=== PATIENT | female | born 1970 | race Two or more races ===

== ENCOUNTER 2020-04-03 12:29 | Outpatient (REF) | payer OTHER, SELFPAY ==
--- NOTE | 2020-04-03 12:38 | XR_ITS ---
EXAMINATION: XR FOOT, LEFT CLINICAL INFORMATION: Twisted ankle with pain lateral aspect right foot and ankle COMPARISON: Report of November 21, 2007 TECHNIQUE: AP, lateral, and oblique views of the left foot. FINDINGS: There is no evidence of acute fracture or dislocation of the left foot. No significant soft tissue swelling is appreciated. No radiopaque foreign body. XR/XR foot LT min 3V IMPRESSION: No acute fracture or dislocation of the left foot identified.
== END 2020-04-03 12:30 | disposition home or self-care (01) ==
LOC: HO.XRAY 12:29
PROVIDERS: Absent Provider Internal Medicine; PCP Internal Medicine; Visit Provider Nurse Practitioner Family
DX: M25.571 Pain in right ankle and joints of right foot (principal)
CPT/HCPCS: 73630

== ENCOUNTER 2020-05-30 13:33 | Outpatient (REF) | payer OTHER, SELFPAY ==
[2020-05-30 15:23] LABS: MANUAL DIFF FLAG NO
[2020-05-30 15:39] LABS: Basophils Absolute Auto 0.1 X10*3/uL (0.0-0.2); Basophils Percent Auto 0.7 % (0-2); Eosinophils Absolute Auto 0.2 X10*3/uL (0.0-0.4); Eosinophils Percent Auto 2.9 % (0-4); Hematocrit 38.6 % (37-47); Hemoglobin 12.5 g/dl (12.0-16.0); Imm Gran Abs Auto 0.01 X10*3/uL (0.00-0.03); Imm Gran Pct Auto 0.1 % (0.0-0.4); Lymphocytes Absolute Auto 2.6 X10*3/uL (1.2-4.9); Lymphocytes Percent Auto 33.7 % (20-40); Mean Corpuscular HGB Conc 32.4 g/dl (31.0-35.0); Mean Corpuscular Hemoglobin 28.3 pg (27.0-33.0); Mean Corpuscular Volume 87.5 fL (80-98); Mean Platelet Volume 10.8 fL (9.4-12.3); Monocytes Absolute Auto 0.5 X10*3/uL (0.1-1.2); Monocytes Percent Auto 6.7 % (2-11); Neutrophils Absolute Auto 4.3 X10*3/uL (2.0-8.3); Neutrophils Percent Auto 55.9 % (45-73); Platelet Count 247 X10*3/uL (160-400); Red Blood Count 4.41 X10*6/uL (4.20-5.50); White Blood Count 7.7 X10*3/uL (4.8-10.8)
[2020-05-30 15:39] LABS: Glucose Urine UA NEG (NEG); Leukocyte Esterase Urine NEG (NEG); Nitrite Urine NEG (NEG); Urine Blood 1+ (NEG); Urine Ketones NEG (NEG); Urine Protein NEG (NEG-TRACE)
[2020-05-30 15:44] LABS: Appearance Urine CLEAR; Color Urine YELLOW
[2020-05-30 15:56] LABS: Alanine Aminotransferase 15 U/L (0-31); Albumin Level 4.2 g/dL (3.5-5.0); Alkaline Phosphatase 80 U/L (39-117); Anion Gap 10 (12-20); Aspartate Amino Transferase 16 U/L (5-31); Bilirubin Total 0.4 mg/dL (0.0-1.0); Blood Urea Nitrogen 12 mg/dL (9-16); C Reactive Protein 0.04 mg/dL (< or = 0.50); Calcium 9.3 mg/dL (8.4-10.2); Carbon Dioxide 28 mmol/L (22-29); Chloride 107 mmol/L (96-108); Estimated Glomerular Filt Rate > 60; Glucose Random 93 mg/dL (60-115); Potassium 4.3 mmol/L (3.3-5.1); Rheumatoid Factor < 15.0 IU/mL (<15.0); Sodium 141 mmol/L (135-145); Total Protein 6.7 g/dL (6.5-8.0)
[2020-05-30 16:08] LABS: WBC Urine 0-2 /HPF (0-4)
[2020-05-30 16:09] LABS: Thyroid Stimulating Hormone 0.73 uIU/mL (0.32-4.0)
[2020-05-30 16:09] LABS: Amorphous Sediment Urine 2+ /LPF; Squamous Epithelial Cell Urine 2+ /LPF
[2020-05-30 17:13] LABS: Erythrocyte Sedimentation Rate 7 MM/HR (0-20)
[2020-05-31 12:57] LABS: Anti DNA DS Antibody 1 IU/mL; Antibody to SS-A Antigen <1.0 NEG AI (<1.0 NEG); Antibody to SS-B Antigen <1.0 NEG AI (<1.0 NEG); SM/Ribonucleoprotein Ab <1.0 NEG AI (<1.0 NEG); Smith Protein <1.0 NEG AI (<1.0 NEG)
[2020-06-01 22:27] LABS: Cyclic Citrullinated Peptide <16 UNITS
[2020-06-02 18:28] LABS: Complement C3 113 mg/dL (83-193)
[2020-06-03 14:47] LABS: Anti Nuclear Antibody Pattern Nuclear, Speckled; Anti Nuclear Antibody Screen POSITIVE (NEGATIVE)
[2020-06-03 21:02] LABS: Vitamin D 25-OH, D2 <4 ng/mL; Vitamin D 25-OH, D3 20 ng/mL; Vitamin D 25-OH, Total 20 ng/mL (30-100)
== END 2020-05-30 13:34 | disposition home or self-care (01) ==
LOC: HO.LAB 13:33
PROVIDERS: PCP Emergency Medicine; Referring Provider Emergency Medicine; Visit Provider Student in an Organized Health Care Education/Training Program
DX: M25.50 Pain in unspecified joint (principal); R53.83 Other fatigue; F17.210 Nicotine dependence, cigarettes, uncomplicated; Z79.899 Other long term (current) drug therapy
CPT/HCPCS: 36415; 80053; 81001; 82306; 84443; 85025; 85652; 86038; 86039; 86140; 86160; 86200; 86225; 86235; 86431

== ENCOUNTER 2020-06-04 08:19 | Outpatient (REF) | payer OTHER, SELFPAY | END 2020-06-04 08:20 | disposition home or self-care (01) | LOC: HO.LAB 08:19 | PROVIDERS: Visit Provider Internal Medicine | DX: Z20.822 Contact with and (suspected) exposure to COVID-19 (principal) | CPT/HCPCS: 36415; C9803; U0003; U0005 ==

== ENCOUNTER → 2020-06-26 16:43 | Outpatient (BNVA) | payer OTHER, SELFPAY | PROVIDERS: PCP Internal Medicine; Visit Provider Student in an Organized Health Care Education/Training Program ==

== ENCOUNTER 2020-07-19 21:27 | Emergency (ER) | payer OTHER, SELFPAY ==
--- NOTE | ~2020-07-19 | XR_ITS ---
EXAMINATION: XR CHEST CLINICAL INFORMATION: Cough. Question COVID. COMPARISON: Chest radiograph dated 01/12/2018. TECHNIQUE: Frontal view of the chest was obtained. FINDINGS: The lungs are clear. The cardiomediastinal silhouette is normal in size. There is no pleural effusion or pneumothorax. No acute osseous abnormality. XR/XR chest 1V IMPRESSION: No acute cardiopulmonary findings.
[2020-07-19 22:09] VITALS: BP 117/75; PULSE 88; RESP 14; TEMP 37.1; O2SAT 100; BMI 24.0
--- NOTE | 2020-07-19 22:29 | ED.URI ---
HPI - URI/Sore Throat General Chief Complaint: Upper Respiratory Symptoms Stated Complaint: COVID SYMPTOMS Time Seen by Provider: 07/19/20 22:29 Source: patient Mode of arrival: ambulatory Limitations: no limitations History of Present Illness HPI Narrative: Patient with exposure to COVID her brother admitted to the hospital with COVID patient was tested 2/3 was negative received COVID vaccine yesterday coughing a lot body aches. And pain in the lungs, Patient's partner also sick with fever now MD elicited complaint: fever and cough Related Data Home Medications Medication Instructions Recorded Confirmed albuterol sulfate 90 mcg/actuation 2 puff INHALATION Q6H PRN 05/30/20 aerosol inhaler montelukast 10 mg tablet 10 mg PO DAILY 05/30/20 omeprazole 20 mg capsule,delayed 20 mg PO DAILY 05/30/20 release Previous Rx's Medication Instructions Recorded benzonatate [Tessalon Perles] 100 mg PO TID PRN #30 cap 07/19/20 dexamethasone [Decadron] 6 mg PO DAILY #7 tab 07/19/20 Allergies Allergy/AdvReac Type Severity Reaction Status Date / Time No Known Allergies Allergy Verified 06/26/20 16:48 [No Known Allergies*] Review of Systems Review of Systems: Yes all other systems are reviewed and are negative PMFSH Past Medical History Medical History Allergic rhinitis Asthma Constipation GERD (gastroesophageal reflux disease) Hemorrhoids Surgical History Hx of tubal ligation Family History Family History Father Heart attack CVD (cardiovascular disease) Sister Cancer Mother HTN (hypertension) Maternal Aunt Lupus Social History Social History Alcohol intake: current Smoking Status: Current every day smoker Tobacco Type: Cigarette Cigarettes Per Day: 10 Years Smoked: 20 Advance Directives: No Physical Exam Vital Signs: Vital Signs: Last Vital Signs Temp 98.7 F 07/19/20 22:09 Pulse 88 07/19/20 22:09 Resp 14 07/19/20 22:09 BP 117/75 07/19/20 22:09 Pulse Ox 100 07/19/20 22:09 Body Mass Index 24.0 Appearance: Alert. Oriented X3. No acute distress. Eyes: Pupils equal, round and reactive to light. ENT: Pharynx normal. Neck: Normal inspection. Neck supple. CVS: Normal heart rate and rhythm. Pulses normal. Respiratory: No respiratory distress. Breath sounds normal. Abdomen: Soft and nontender. Bowel sounds are present, no mass palpable, no CVA tenderness Skin: Skin warm and dry. Normal skin color. Normal skin turgor. Extremities: No lower extremity edema. Neuro: Oriented X 3. No motor deficit. No sensory deficit. MDM - URI/Sore Throat Lab Data Attestation: I reviewed the patient's lab results. Labs: Lab Results 07/19/20 Range/Units 22:43 COVID-19 (JUHI) Positive A (Negative) COVID-19 Clin Com See Note Discharge Plan Discharge Clinical Impression: COVID-19 Patient Disposition: Home, Self-Care Instructions: COVID-19 (Coronavirus Disease 2019) (ED) Additional Instructions: Drink plenty of fluids Tylenol for pain. Medication as advised Report to the ER if increased shortness of breath Prescriptions: New dexamethasone [Decadron] 6 mg tablet 6 mg PO DAILY Qty: 7 RF: 0 benzonatate [Tessalon Perles] 100 mg capsule 100 mg PO TID PRN (Reason: cough) Qty: 30 RF: 0 No Action montelukast [Singulair] 10 mg tablet 10 mg PO DAILY RF: 0 albuterol sulfate 90 mcg/actuation HFA aerosol inhaler 2 puff inhalation Q6H PRNRF: 0 omeprazole 20 mg capsule,delayed release(DR/EC) 20 mg PO DAILY RF: 0
[2020-07-19] MEDS: dexAMETHasone 6 MG TABLET PO (22:43)
[2020-07-19] MEDS: guaiFEN/Codeine SF 200/20/10ML 10 ML LIQUID PO (22:43)
[2020-07-19 22:57] LABS: COVID-19 Test Positive (Negative); IDNOW Serial# 9DD0AD1C
== END 2020-07-19 23:30 | disposition home or self-care (01) ==
PROVIDERS: Emergency Provider Internal Medicine
DX: U07.1 COVID-19 (principal); M79.10 Myalgia, unspecified site; F17.210 Nicotine dependence, cigarettes, uncomplicated; Z71.6 Tobacco abuse counseling; Z79.899 Other long term (current) drug therapy
CPT/HCPCS: 36415; 71045; 87635; 99283; J8540

== ENCOUNTER 2020-07-27 10:14 | Emergency (ER) | payer OTHER, SELFPAY ==
--- NOTE | ~2020-07-27 | XR_ITS ---
EXAMINATION: XR CHEST CLINICAL INFORMATION: Pneumonia COMPARISON: Previous chest x-ray 07/19/2020 TECHNIQUE: Frontal view of the chest was obtained. FINDINGS: No significant abnormality is noted involving the heart, lungs, mediastinum, bony thorax or soft tissues. XR/XR chest 1V IMPRESSION: Unremarkable examination.
[2020-07-27 10:23] VITALS: BP 119/59; PULSE 71; RESP 18; TEMP 36.7; O2SAT 100; BMI 24.0
--- NOTE | 2020-07-27 12:07 | ED_ITS ---
HPI - General Adult General Chief complaint: General Medical Stated complaint: covid+, sob Time Seen by Provider: 07/27/20 11:03 History of Present Illness HPI narrative: This is a 50 years old female presented ambulatory to the emergency department complaining of headaches complaining of tingling in the head , arms, in the mouth. She was diagnosed with COVID about a week ago Onset (ago): week(s) (1) Related Data Home Medications Medication Instructions Recorded Confirmed albuterol sulfate 90 mcg/actuation 2 puff INHALATION Q6H PRN 05/30/20 aerosol inhaler montelukast 10 mg tablet 10 mg PO DAILY 05/30/20 omeprazole 20 mg capsule,delayed 20 mg PO DAILY 05/30/20 release Previous Rx's Medication Instructions Recorded benzonatate [Tessalon Perles] 100 mg PO TID PRN #30 cap 07/19/20 dexamethasone [Decadron] 6 mg PO DAILY #7 tab 07/19/20 Allergies Allergy/AdvReac Type Severity Reaction Status Date / Time No Known Allergies Allergy Verified 06/26/20 16:48 [No Known Allergies*] Review of Systems Review of Systems: Yes all other systems are reviewed and are negative Cardiovascular: Cardiovascular: Reports no additional cardiovascular complaints Respiratory: Respiratory: Reports cough Neurologic: Reports system reviewed and no additional complaints, except as documented PMFSH Past Medical History Medical History Allergic rhinitis Asthma Constipation GERD (gastroesophageal reflux disease) Hemorrhoids Surgical History Hx of tubal ligation Family History Family History Father Heart attack CVD (cardiovascular disease) Sister Cancer Mother HTN (hypertension) Maternal Aunt Lupus Social History Social History Alcohol intake: current Smoking Status: Current every day smoker Tobacco Type: Cigarette Cigarettes Per Day: 10 Years Smoked: 20 Advance Directives: No Advance Directives Information Provided: No Physical Exam Vital Signs: Vital Signs: Last Vital Signs Temp 98.0 F 07/27/20 10:23 Pulse 71 07/27/20 10:23 Resp 18 07/27/20 10:23 BP 119/59 L 07/27/20 10:23 Pulse Ox 100 07/27/20 10:23 Body Mass Index 24.0 Const: General: healthy appearing Orientation/consciousness: oriented to person, oriented to place, oriented to time and patient oriented x3 HENMT: Head: Yes normal to inspection Eyes: General: appearance normal, both eyes and all related structures Neck: Neck: Yes normal visual inspection Chest: Chest palpation & inspection: normal inspection of the chest Breast/axilla inspection: normal inspection of the breasts Resp: Effort & Inspection: normal respiratory effort Cardio: Rate: regular rate Rhythm: regular rhythm GI: Inspection: Yes normal to inspection Palpation (GI): Soft to palpation Skin: General skin exam: no rashes or lesions noted Neuro: General: oriented to person, oriented to place, oriented to time and patient oriented x3 Extrem: General: Yes normal to inspection, Yes full ROM and Yes capillary refill normal Course Course Course Narrative: Patient chest x-ray was negative.Saturation is 100% okay to discharge home Medical Decision Making Imaging Data Chest x-ray: Radiologist's impression: EXAMINATION: XR CHEST CLINICAL INFORMATION: Pneumonia COMPARISON: Previous chest x-ray 07/19/2020 TECHNIQUE: Frontal view of the chest was obtained. FINDINGS: No significant abnormality is noted involving the heart, lungs, mediastinum, bony thorax or soft tissues. XR/XR chest 1V IMPRESSION: Unremarkable examination. Dictated By:TAYLOR JOHNSigned By:<Electronically signed by TAYLOR JOHNS MD in [place]>07/27/20 1242 Discharge Plan Discharge Clinical Impression: COVID-19 Additional Instructions: Follow-up with your primary care physician return to the emergency depart with the view short of breath any concern Prescriptions: No Action dexamethasone [Decadron] 6 mg tablet 6 mg PO DAILY Qty: 7 RF: 0 benzonatate [Tessalon Perles] 100 mg capsule 100 mg PO TID PRN (Reason: cough) Qty: 30 RF: 0 montelukast [Singulair] 10 mg tablet 10 mg PO DAILY RF: 0 albuterol sulfate 90 mcg/actuation HFA aerosol inhaler 2 puff inhalation Q6H PRNRF: 0 omeprazole 20 mg capsule,delayed release(DR/EC) 20 mg PO DAILY RF: 0 Referrals: [facility] [Primary Care Provider] - 2 days
== END 2020-07-27 13:17 | disposition home or self-care (01) ==
PROVIDERS: Emergency Provider Emergency Medicine
DX: U07.1 COVID-19 (principal); R51.9 Headache, unspecified; F17.210 Nicotine dependence, cigarettes, uncomplicated
CPT/HCPCS: 71045; 99283

== ENCOUNTER 2021-01-15 09:42 | Outpatient (REF) | payer OTHER, SELFPAY ==
--- NOTE | ~2021-01-15 | MM_ITS ---
EXAMINATION: MM SCREENING DIGITAL BREAST TOMOSYNTHESIS, BILATERAL CLINICAL INFORMATION: Screening. Asymptomatic. The lifetime risk of breast cancer based on the Tyrer-Cuzick Model is 8%. COMPARISON: Mammography: 11/26/2016, 08/22/2015, 05/19/2015 TECHNIQUE: Digital breast tomosynthesis is performed in both the craniocaudal and mediolateral oblique views along with computer-aided detection (CAD). Synthesized 2D images are generated from the tomosynthesis. FINDINGS: The breasts are heterogeneously dense, which may obscure small masses (ACR BI-RADS breast composition Category c). Parenchymal pattern is similar to prior exams. There is no developing density or significant mass or architectural modality. No abnormal calcifications. The skin contours are smooth. MM/MM tomosynthesis screening BI IMPRESSION: No mammographic evidence of malignancy. ASSESSMENT: BI-RADS 1: Negative RECOMMENDATION: Routine annual mammography screening. This patient's information was entered into a reminder system with a target due date for their next mammogram.
== END 2021-01-15 09:43 | disposition home or self-care (01) ==
LOC: HO.MAMMO 09:42
PROVIDERS: PCP Internal Medicine; Visit Provider Internal Medicine
DX: Z12.31 Encounter for screening mammogram for malignant neoplasm of breast (principal)
CPT/HCPCS: 77063; 77067

== ENCOUNTER 2021-01-23 08:14 | Outpatient (REF) | payer OTHER, SELFPAY ==
--- NOTE | ~2021-01-23 | XR_ITS ---
EXAMINATION: XR ANKLE, RIGHT CLINICAL INFORMATION: 50-year-old female patient with pain of the right ankle. COMPARISON: None pertinent. TECHNIQUE: AP, lateral, and mortise views of the right ankle. FINDINGS: The bones and soft tissues are normal. No fracture. Alignment is anatomic. Joint spaces are maintained. No joint effusion. XR/XR ankle RT min 3V IMPRESSION: Normal right ankle.
== END 2021-01-23 08:15 | disposition home or self-care (01) ==
LOC: HO.HOSX 08:14
PROVIDERS: Visit Provider Physician Assistant
DX: S93.401A Sprain of unspecified ligament of right ankle, initial encounter (principal)
CPT/HCPCS: 73610

== ENCOUNTER 2021-01-27 13:26 | Outpatient (REF) | payer OTHER, SELFPAY ==
[2021-01-27 14:22] LABS: Hematocrit 38.1 % (37-47); Hemoglobin 12.6 g/dl (12.0-16.0); Mean Corpuscular HGB Conc 33.1 g/dl (31.0-35.0); Mean Corpuscular Hemoglobin 28.7 pg (27.0-33.0); Mean Corpuscular Volume 86.8 fL (80-98); Mean Platelet Volume 10.7 fL (9.4-12.3); Platelet Count 209 X10*3/uL (160-400); Red Blood Count 4.39 X10*6/uL (4.20-5.50); Red Cell Distribution Width 12.8 % (11.0-16.0); White Blood Count 6.4 X10*3/uL (4.8-10.8)
[2021-01-27 15:07] LABS: HCG Quantitative < 2 mIU/mL; TSH reflex Free T4 1.13 uIU/mL (0.32-4.0)
[2021-01-28 01:48] LABS: CT PCR NOT DETECTED (Not Detect.); NG PCR NOT DETECTED (Not Detect.)
[2021-01-30 07:41] LABS: HPV mRNA E6/E7 rflx Not Detected (Not Detected)
== END 2021-01-27 13:27 | disposition home or self-care (01) ==
LOC: HO.LAB 13:26
PROVIDERS: PCP Internal Medicine; Visit Provider Obstetrics & Gynecology
DX: N93.9 Abnormal uterine and vaginal bleeding, unspecified (principal); Z11.51 Encounter for screening for human papillomavirus (HPV)
CPT/HCPCS: 36415; 84443; 84702; 85027; 87491; 87591; 87624; 88142

== ENCOUNTER 2021-02-11 15:58 | Outpatient (REF) | payer OTHER, SELFPAY ==
--- NOTE | ~2021-02-11 | US_ITS ---
EXAMINATION: US PELVIC AND TRANSVAGINAL CLINICAL INFORMATION: Abnormal bleeding. COMPARISON: Pelvic ultrasound dated 10/27/2017. TECHNIQUE: Ultrasound of the pelvis is performed using both transabdominal and transvaginal transducers along with Doppler. Transvaginal imaging is performed due to inadequate visualization transabdominally. FINDINGS: Uterus: The uterus is retroverted and and measures 8.1 x 4.8 x 5.1 cm. The double wall endometrial thickness is 0.8 mm. The uterus is smooth in contour and has normal myometrial echogenicity. Redemonstration of a right-sided fundal fibroid measuring approximately 1.9 x 1.7 x 1.5 cm, unchanged. No new myometrial lesion. Adnexa: Both ovaries are visualized. There is normal color flow to the adnexa. There is no ovarian torsion. There is no pelvic ascites or fluid collection. Right ovary measures 1.9 x 2 x 1.4cm. Right ovarian volume of 2.8 mm. Right ovarian dominant follicle measuring 1.5 cm. Left ovary measures 1.7 x 1.2 x 1.2 cm. Left ovarian volume of 1.3 mL. US/US pelvic and transvaginal IMPRESSION: 1. Redemonstration of a right fundal fibroid measuring 1.9 cm, unchanged. No new myometrial lesion. 2. Unremarkable endometrium.
== END 2021-02-11 15:59 | disposition home or self-care (01) ==
LOC: HO.US 15:58
PROVIDERS: PCP Internal Medicine; Visit Provider Obstetrics & Gynecology
DX: N93.9 Abnormal uterine and vaginal bleeding, unspecified (principal)
CPT/HCPCS: 76830; 76856

== ENCOUNTER → 2021-02-23 14:29 | Outpatient (BNVA) | payer OTHER, SELFPAY | PROVIDERS: Visit Provider Obstetrics & Gynecology ==

== ENCOUNTER 2021-02-27 08:41 | Day surgery (SDC) | payer OTHER, SELFPAY ==
--- NOTE | 2021-02-26 12:38 | P.CONAN_ITS ---
Documented by User: Kristi Torres NP 02/26/21 12:39 HPI - Anesthesia Eval Consult details Narrative: 50yo F for D&C Hysteroscopy,poss polypectomy/myomectomy PMFSH Active Problems Active Problems: All Active Problems (Updated 01/27/21 @ 13:43 by Timbo Del Rosario MD) Abnormal uterine bleeding (AUB) (Acute) Moderate right ankle sprain (Acute) COVID-19 (Acute) COVID-19 (Acute) Polyarthralgia (Acute) Past Medical History Medical History Allergic rhinitis Asthma Constipation GERD (gastroesophageal reflux disease) Hemorrhoids Family History Family History Father Heart attack CVD (cardiovascular disease) Sister Cancer Mother HTN (hypertension) Maternal Aunt Lupus Surgical History Surgical History Hx of tubal ligation Social History Social History Alcohol intake: current Patient Tobacco Use Status: Current everyday Tobacco user Tobacco use type: Cigarette Cigarettes Per Day: 10 Years Smoked: 20 Smoked in Last 30 Days: Yes Use of substances other than those prescribed or required for medical reasons: No Are you DNR?: No Advance Directives: No Advance Directives Information Provided: Yes Recently lost weight without trying: No Nutrition Risks: No Nutritional Risk Current occupational status: employed 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 Meds Allergies Allergy/AdvReac Type Severity Reaction Status Date / Time No Known Allergies Allergy Verified 01/27/21 13:31 [No Known Allergies*] Home Medications Medication Instructions Recorded Confirmed Last Taken Type albuterol sulfate 90 mcg/actuation 2 puff INHALATION Q6H PRN 05/30/20 Unknown History aerosol inhaler montelukast 10 mg tablet 10 mg PO DAILY 05/30/20 Unknown History (Singulair) omeprazole 20 mg capsule,delayed 20 mg PO DAILY 05/30/20 Unknown History release Exam Exam Date and Time: February 26, 2021 1238 Assessment and Plan Assessment Anesthesia Assessment: Chart Reviewed Documented by User: Peg Harmon MD 02/27/21 10:40 [facility] Past Medical History Medical History Allergic rhinitis Asthma Constipation GERD (gastroesophageal reflux disease) Hemorrhoids Family History Family History Father Heart attack CVD (cardiovascular disease) Sister Cancer Mother HTN (hypertension) Maternal Aunt Lupus Family history of problems with anesthesia: No Surgical History Surgical History Hx of tubal ligation History of Problems with Anesthesia: No Social History Social History Alcohol intake: current Patient Tobacco Use Status: Current everyday Tobacco user Tobacco use type: Cigarette Cigarettes Per Day: 10 Years Smoked: 20 Smoked in Last 30 Days: Yes Use of substances other than those prescribed or required for medical reasons: No Are you DNR?: No Advance Directives: No Advance Directives Information Provided: Yes Recently lost weight without trying: No Nutrition Risks: No Nutritional Risk Current occupational status: employed 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 Meds Allergies Allergy/AdvReac Type Severity Reaction Status Date / Time No Known Allergies Allergy Verified 01/27/21 13:31 [No Known Allergies*] Home Medications Medication Instructions Recorded Confirmed Last Taken Type albuterol sulfate 90 mcg/actuation 2 puff INHALATION Q6H PRN 05/30/20 Unknown History aerosol inhaler montelukast 10 mg tablet 10 mg PO DAILY 05/30/20 Unknown History (Singulair) omeprazole 20 mg capsule,delayed 20 mg PO DAILY 05/30/20 Unknown History release Exam Height,Weight and Vital Signs: Height 5 ft 4 in Weight 63.503 kg Vital Signs Temp Pulse Resp BP Pulse Ox 02/27/21 09:09 97.5 F 75 16 116/74 98 Pertinent Lab Results Pertinent Lab Results: Lab Results 02/27/21 Range/Units 08:57 Urine Test NEGATIVE (NEGATIVE) Airway Mallampati Class: II TM Dist: >3cm Neck ROM: Full Heart: RRR Lungs: Occ wheeze Assessment and Plan Assessment Anesthesia Assessment: Anesthesia Plan Discussed Final Anesthetic Review Family History of Problems with Anesthesia: No History of Problems with Anesthesia: No NPO: Yes ASA Class: II Final Preanesthetic Review: No Changes in Pt Med Stat, Meds/Allgs Chart Reviewed, Consent Obtained/Reviewed and Anes Risks/Benef Reviewed Patient Risk: Low Procedure Risk: Low Assessment/Block/Sedation in SS: Assess/Block/Sedation-SS Anesthetic Plan Anesthetic Plan: GA Disposition: Standard PACU
[2021-02-27] VITALS (8 sets, daily range): BP systolic 93–116; BP diastolic 49–74; PULSE 64–75; RESP 14–18; TEMP 36.2–37.1; O2SAT 96–100; BMI 24.0
[2021-02-27 09:07] LABS: UPreg QC Valid YES; Urine Pregnancy NEGATIVE (NEGATIVE)
--- NOTE | 2021-02-27 09:19 | MHC.SHP ---
Pre-Procedural Eval Section A Date of Service: 02/27/21 The patient is an INPATIENT: No Changes since office visit: No Cold of Flu in the past 2 weeks, No New Medical Problems, No Changes in Medication and No Patient answered all questions The History & Physical has been completed within 30 days and I have reviewed it.: Yes Section B Chief Complaint: abnormal uterine and vaginal bleeding Allergies: Allergies Allergy/AdvReac Type Severity Reaction Status Date / Time No Known Allergies Allergy Verified 01/27/21 13:31 [No Known Allergies*] Plan Diagnosis/Plan: Unchanged I have reviewed the history and physical and performed a pertinent physical examination on my patient. No changes have occurred unless specified.
[2021-02-27] MEDS: Lactated Ringers 1,000 ML 100 ML IVCONT (09:22)
--- NOTE | 2021-02-27 10:26 | PM.OP ---
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
--- NOTE | 2021-02-27 10:27 | P.OP_ITS ---
Operative Note Operative Note Date of Service: 02/27/21 Narrative: Preop Diagnosis: Abnormal uterine bleeding Operation: Diagnostic Hysteroscopy, Dilataion & Curettage Post Op Diagnosis: normal endometrial and endocervical cavity no evidence of pathology QBL: Minimal Anesthesia: MAC Surgeon: Timbo Del Rosario MD Parking Meter Installer: None Complication: None Pathology: Endometrial Scrapings Procedure: The patient was put in the dorsal lithotomy position, scrubbed, and draped in the usual manner. A sterile speculum was inserted in the patient's vagina. The anterior lip of the cervix was grasped with a single tooth tenaculum. The cervix was dilated up t o 5 mm, then the scope was inserted in the patient's uterus. Inspection revealed normal endocervical & endometrial cavity with no evidence of pathology. The scope was taken out of the uterine cavity , then sharp curetting was carried on with no complications. At the end of the procedure, all instruments were taken out of the patient uterine and vaginal cavity. The single tooth tenaculum was removed and homeostasis was assured using pressure. The patient tolerated the procedure well and was transferred to the PACU in a stable condition.
== END 2021-02-27 12:15 | disposition home or self-care (01) ==
PROVIDERS: PCP Internal Medicine; Visit Provider Obstetrics & Gynecology
PROC: 0UDB8ZZ Extraction of Endometrium, Via Natural or Artificial Opening Endoscopic (ICD-10-PCS; CPT 58558; principal; 2021-02-27 10:20)
DX: N93.9 Abnormal uterine and vaginal bleeding, unspecified (principal); Z98.51 Tubal ligation status; K21.9 Gastro-esophageal reflux disease without esophagitis; J45.909 Unspecified asthma, uncomplicated; F17.210 Nicotine dependence, cigarettes, uncomplicated; K59.00 Constipation, unspecified; K64.8 Other hemorrhoids; Z79.51 Long term (current) use of inhaled steroids; Z79.899 Other long term (current) drug therapy
CPT/HCPCS: 58558; 81025; 88305; J1100; J2250; J2405; J3010

== ENCOUNTER → 2021-03-12 12:59 | Outpatient (BNVA) | payer OTHER, SELFPAY | PROVIDERS: PCP Internal Medicine; Visit Provider Obstetrics & Gynecology ==

== ENCOUNTER → 2021-06-15 11:48 | Outpatient (BNVA) | payer OTHER, SELFPAY | PROVIDERS: Visit Provider Obstetrics & Gynecology ==

== ENCOUNTER 2021-12-25 08:03 | Outpatient (REF) | payer OTHER, SELFPAY ==
--- NOTE | ~2021-12-25 | US_ITS ---
EXAMINATION: US ABDOMEN COMPLETE CLINICAL INFORMATION: Epigastric pain. COMPARISON: CT abdomen and pelvis 02/20/2014. TECHNIQUE: Real-time imaging of the abdominal viscera. FINDINGS: PANCREAS: Normal in size and contour and echogenicity. No pancreatic ductal distention or retroperitoneal effusion. ABDOMINAL AORTA: The proximal, mid, and distal segments are normal in caliber. INFERIOR VENA CAVA: Visualized portions are normal. LIVER: Normal. The liver is normal in size. The liver contour is normal. Parenchymal echogenicity is normal. No focal hepatic lesion. There is no intrahepatic biliary duct dilatation seen. GALLBLADDER: Normal. The gallbladder is physiologically distended without evidence of stones, sludge, polyps, wall thickening or pericholecystic fluid. COMMON BILE DUCT: Normal in caliber measuring 0.3 cm in diameter. RIGHT KIDNEY: Normal. No hydronephrosis. No renal calculi or focal parenchymal lesions. The kidney measures 10.5 cm in maximum dimension. LEFT KIDNEY: Normal. No hydronephrosis. No renal calculi or focal parenchymal lesions. The kidney measures 10.6 cm in maximum dimension. SPLEEN: Normal. The spleen measures 7.7 cm in maximum dimension. FREE FLUID: None. US/US abdomen complete IMPRESSION: Normal study.
== END 2021-12-25 08:04 | disposition home or self-care (01) ==
LOC: HO.US 08:03
PROVIDERS: Visit Provider Internal Medicine
DX: R10.13 Epigastric pain (principal)
CPT/HCPCS: 76700

== ENCOUNTER 2022-01-23 09:45 | Outpatient (REF) | payer OTHER, SELFPAY ==
--- NOTE | ~2022-01-23 | MM_ITS ---
EXAMINATION: MM SCREENING DIGITAL BREAST TOMOSYNTHESIS, BILATERAL CLINICAL INFORMATION: Screening. Asymptomatic. The lifetime risk of breast cancer based on the Tyrer-Cuzick Model is 7%. COMPARISON: Mammography: 01/15/2021, 11/18/2016, 08/22/2015, 05/19/2015 TECHNIQUE: Digital breast tomosynthesis is performed in both the craniocaudal and mediolateral oblique views along with computer-aided detection (CAD). Synthesized 2D images are generated from the tomosynthesis. FINDINGS: The breasts are heterogeneously dense, which may obscure small masses (ACR BI-RADS breast composition Category c). Breast tissue composition borders on average fibroglandular. Parenchymal pattern is similar to prior studies. There is no developing density or architectural abnormality. No interval mass or abnormal calcifications. The axilla and skin contours are unremarkable. No significant changes. MM/MM tomosynthesis screening BI IMPRESSION: No mammographic evidence of malignancy. ASSESSMENT: BI-RADS 1: Negative RECOMMENDATION: Routine annual mammography screening. This patient's information was entered into a reminder system with a target due date for their next mammogram.
== END 2022-01-23 09:46 | disposition home or self-care (01) ==
LOC: HO.MAMMO 09:45
PROVIDERS: PCP Internal Medicine; Visit Provider Internal Medicine
DX: Z12.31 Encounter for screening mammogram for malignant neoplasm of breast (principal)
CPT/HCPCS: 77063; 77067

== ENCOUNTER 2022-06-01 12:42 | Emergency (ER) | payer OTHER, SELFPAY ==
--- NOTE | ~2022-06-01 | CT_ITS ---
EXAMINATION: CT HEAD WITHOUT CONTRAST CLINICAL INFORMATION: Asymmetric mouth droop. COMPARISON: None. TECHNIQUE: Contiguous axial imaging was performed from the skullbase to vertex without intravenous administration of contrast. This CT examination was performed using dose optimization techniques as appropriate, variously including the following: *Automated exposure control *Adjustment of mA and/or kV according to patient size (this includes techniques or standardized protocols for targeted exams where dose is matched to indication/reason for exam; i.e. extremities or head) *Use of iterative reconstruction technique DLP: 598 mGy-cm. FINDINGS: There is no evidence of acute intracranial hemorrhage or territorial infarction. No abnormal mass effect or midline shift is seen. Pineda to white matter differentiation is well preserved. No extra-axial fluid collections are identified. The ventricles are normal in size. There is no abnormal attenuation within the brain parenchyma. The osseous structures and soft tissues are normal. The mastoid air cells and visualized portions of the paranasal sinuses are well aerated. CT/CT head/brain wo IV con IMPRESSION: No acute intracranial pathology.
[2022-06-01 12:51] VITALS: BP 127/73; BP 148/72; PULSE 82; PULSE 85; RESP 16; TEMP 36.7; O2SAT 97; O2SAT 98; BMI 23.3
--- NOTE | 2022-06-01 12:54 | PC.NURSE ---
Alert and oriented x4, respirations even and unlabored. Speaking in full, clear sentences. Strong hand grasps and denies any weakness. Slight droop noted to pt's left mouth. Denies headache or dizziness.
[2022-06-01 12:55] VITALS: BP 127/73; PULSE 81; RESP 16; TEMP 36.7; O2SAT 97
[2022-06-01 13:44] LABS: MANUAL DIFF FLAG NO
[2022-06-01 13:49] LABS: Basophils Percent Auto 0.4 % (0-2); Eosinophils Absolute Auto 0.1 X10*3/uL (0.0-0.4); Eosinophils Percent Auto 1.9 % (0-4); Hematocrit 36.9 % (37.0-47.0); Hemoglobin 12.3 g/dl (12.0-16.0); Imm Gran Abs Auto 0.01 X10*3/uL (0.00-0.03); Imm Gran Pct Auto 0.1 % (0.0-0.4); Lymphocytes Absolute Auto 1.8 X10*3/uL (1.2-4.9); Lymphocytes Percent Auto 25.4 % (20-40); Mean Corpuscular HGB Conc 33.3 g/dl (31.0-35.0); Mean Corpuscular Hemoglobin 28.4 pg (27.0-33.0); Mean Corpuscular Volume 85.2 fL (80.0-98.0); Mean Platelet Volume 10.5 fL (9.4-12.3); Monocytes Absolute Auto 0.5 X10*3/uL (0.1-1.2); Monocytes Percent Auto 7.5 % (2-11); Neutrophils Absolute Auto 4.5 x10*3/uL (2.0-8.3); Neutrophils Percent Auto 64.7 % (45-73); Platelet Count 188 X10*3/uL (160-400); Red Blood Count 4.33 X10*6/uL (4.20-5.50)
[2022-06-01 13:54] LABS: Prothrombin Time 10.9 SEC (10.0-13.1)
[2022-06-01 14:08] LABS: Alanine Aminotransferase 13 U/L (0-31); Albumin Level 4.1 g/dL (3.5-5.0); Alkaline Phosphatase 82 U/L (39-117); Anion Gap 13 (12-20); Aspartate Amino Transferase 16 U/L (5-31); Bilirubin Total 0.3 mg/dL (0.0-1.0); Blood Urea Nitrogen 13 mg/dL (9-16); Calcium 9.5 mg/dL (8.4-10.2); Carbon Dioxide 23 mmol/L (22-29); Chloride 110 mmol/L (96-108); Estimated Glomerular Filt Rate > 60; Glucose Random 95 mg/dL (60-115); Potassium 4.1 mmol/L (3.3-5.1); Sodium 142 mmol/L (135-145); Total Protein 6.3 g/dL (6.5-8.0)
--- NOTE | 2022-06-01 14:11 | ED_ITS ---
HPI - General Adult General Chief complaint: General Medical Stated complaint: left eye/facial droop Time Seen by Provider: 06/01/22 13:03 Source: patient Mode of arrival: ambulatory History of Present Illness HPI narrative: 51-year-old female without significant past medical history presents with concerns that at 06:30 this morning she noted that she had Flattening over the left corner of her mouth and denies any unilateral numbness/tingling/weakness and otherwise denies any shortness of breath or chest pain or traumatic injury. Patient denies any recent illnesses. Related Data Home Medications Medication Instructions Recorded Confirmed albuterol sulfate 90 mcg/actuation 2 puff inhalation Q6H PRN 05/30/20 aerosol inhaler montelukast 10 mg tablet 10 mg PO DAILY 05/30/20 (Singulair) omeprazole 20 mg capsule,delayed 20 mg PO DAILY 05/30/20 release Previous Rx's Medication Instructions Recorded ibuprofen 800 mg tablet 800 mg PO Q8H #21 tabs 07/27/20 medroxyprogesterone 10 mg tablet 10 mg PO DAILY 10 days #30 tabs 03/12/21 (Provera) Allergies Allergy/AdvReac Type Severity Reaction Status Date / Time No Known Allergies Allergy Verified 01/27/21 13:31 [No Known Allergies*] Review of Systems Review of Systems: Pertinent positives and negatives as stated in HPI [facility] Past Medical History Source: nursing notes reviewed Medical History Allergic rhinitis Asthma Constipation GERD (gastroesophageal reflux disease) Hemorrhoids Surgical History Hx of tubal ligation Family History Family History Father Heart attack CVD (cardiovascular disease) Sister Cancer Mother HTN (hypertension) Maternal Aunt Lupus Social History Social History Alcohol intake: current Patient Tobacco Use Status: Current everyday Tobacco user Tobacco use type: Cigarette Cigarettes Per Day: 10 Years Smoked: 20 Advance Directives: No Advance Directives Information Provided: No Current occupational status: employed 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 GENERAL: Well developed, well nourished, in no acute distress. HEAD: Normocephalic/atraumatic EYES: PERRLA, EOMI EARS: Ext canals without abnormality OROPHARYNX: no oral lesions noted, posterior pharynx clear LUNGS: Normal breath sounds. No adventitious sounds or accessory muscle use. SpO2<97> CARDIOVASCULAR: Regular rate and rhythm without noted murmurs ABDOMEN: Soft, non-tender, non-distended with bowel sounds. MUSCULOSKELETAL: No tenderness, deformities, or effusions noted on gross inspection. EXTREMITIES: No cyanosis, clubbing or edema. SKIN: Inspection of the skin reveals no rashes NEUROLOGIC: Alert and oriented x 4. Strength and sensation to light touch were grossly intact x 4, the only facial asymmetry that is noted is Flattening over the nasal labial fold with mild droop to the left mouth, otherwise neuro is appear intact, cranial nerves 2-12 are grossly intact, no pronator drift. Medical Decision Making Medical Decision Making [facility] Narrative: 51-year-old female with high clinical suspicion for a Matias's palsy verses central neurologic deficit, however will obtain basic lab work in CT of the head for further evaluation. This plan was discussed with the patient at bedside. Review of all investigations and my interpretation is that there are no focal findings to suggest intracranial pathology, however no strong evidence to suggest Matias's palsy at this time. Patient is a reliable historian and she is instructed to follow-up with her primary care provider with instructions that if she notices that this progresses and begins involving eyelid drooping as well as increased facial drooping with inability to lift the left eyebrow that she should pursue prescription for steroids. This was discussed with the patient at bedside. Differential Diagnosis Differential Diagnoses: The differential diagnosis associated with the presentation includes Please see the discussion above Lab Data [facility] Lab Attestation statement: I reviewed the patient's lab results. Please see the discussion above 06/01/22 13:40 06/01/22 13:40 Labs: Lab Results 06/01/22 06/01/22 06/01/22 Range/Units 13:40 13:40 13:40 WBC 7.0 (4.8-10.8) X10*3/uL RBC 4.33 (4.20-5.50) X10*6/uL Hgb 12.3 (12.0-16.0) g/dl Hct 36.9 L (37.0-47.0) % MCV 85.2 (80.0-98.0) fL MCH 28.4 (27.0-33.0) pg MCHC 33.3 (31.0-35.0) g/dl RDW 13.0 (11.0-16.0) % Plt Count 188 (160-400) X10*3/uL MPV 10.5 (9.4-12.3) fL Immature Gran % (Auto) 0.1 (0.0-0.4) % Neut % (Auto) 64.7 (45-73) % Lymph % (Auto) 25.4 (20-40) % [place] % (Auto) 7.5 (2-11) % Eos % (Auto) 1.9 (0-4) % Baso % (Auto) 0.4 (0-2) % Lymph # (Auto) 1.8 (1.2-4.9) X10*3/uL [place] # (Auto) 0.5 (0.1-1.2) X10*3/uL Eos # (Auto) 0.1 (0.0-0.4) X10*3/uL Baso # (Auto) 0.0 (0.0-0.2) X10*3/uL Abs Immat Gran (auto) 0.01 (0.00-0.03) X10*3/uL Absolute Neuts (auto) 4.5 (2.0-8.3) x10*3/uL Absolute Nucleated RBC 0.000 (0.0-0.012) X10*3/uL Nucleated RBC % (auto) 0.0 (0.0-0.2) /100WBC PT 10.9 (10.0-13.1) SEC INR 1.0 (0.9-1.1) Sodium 142 (135-145) mmol/L Potassium 4.1 (3.3-5.1) mmol/L Chloride 110 H (96-108) mmol/L Carbon Dioxide 23 (22-29) mmol/L Anion Gap 13 (12-20) BUN 13 (9-16) mg/dL Creatinine 0.89 (0.5-1.4) mg/dL Estim Creat Clear Calc 68.0 Estimated GFR > 60 Random Glucose 95 (60-115) mg/dL Calcium 9.5 (8.4-10.2) mg/dL Total Bilirubin 0.3 (0.0-1.0) mg/dL AST 16 (5-31) U/L ALT 13 (0-31) U/L Alkaline Phosphatase 82 (39-117) U/L Total Protein 6.3 L (6.5-8.0) g/dL Albumin 4.1 (3.5-5.0) g/dL Independent Interpretation I performed an independent interpretation of an: EKG Interpretation: Normal sinus rhythm, HR-63, no STEMI, MO/QRS/QTC are within normal limits. Discharge Plan Discharge Clinical Impression: Mouth droop Patient Disposition: Home, Self-Care Instructions: Matias Palsy (ED) Additional Instructions: 1. At this time I will not prescribe any steroids for your condition, but please monitor for worsening droop. I recommend that you call the office of your primary care provider either this evening or 1st thing in the morning to set up an appointment for re-evaluation. If your symptoms worsen and your primary care provider declines to see you please do not hesitate to return to the emergency room and we can easily prescribe you steroids. LEFT eyelid drooping as well as increased facial drooping with inability to lift the left eyebrow Prescriptions: No Action ibuprofen 800 mg tablet 800 mg PO Q8H Qty: 21 0RF montelukast [Singulair] 10 mg tablet 10 mg PO DAILY albuterol sulfate 90 mcg/actuation HFA aerosol inhaler 2 puff inhalation Q6H PRN omeprazole 20 mg capsule,delayed release(DR/EC) 20 mg PO DAILY medroxyprogesterone [Provera] 10 mg tablet 10 mg PO DAILY 10 Days Qty: 30 3RF Rx Instructions: start Provera 1 tablet daily from day 15-24 cyclically every months, day 1 being 1st day of menses
--- NOTE | 2022-06-01 14:15 | ECG_ITS ---
Test Reason : FAICAL ASYMETRITY Blood Pressure : / mmHG Vent. Rate : 063 BPM Atrial Rate : 063 BPM P-R Int : 134 ms QRS Dur : 072 ms QT Int : 410 ms P-R-T Axes : 067 043 049 degrees QTc Int : 419 ms Normal sinus rhythm Low voltage QRS Borderline ECG When compared with ECG of 12-JAN-2018 17:02, No significant change was found Referred By: Hilaria Ramirez Electronically Signed By:Valentín Lyons
== END 2022-06-01 16:45 | disposition home or self-care (01) ==
PROVIDERS: Emergency Provider Student in an Organized Health Care Education/Training Program
DX: R29.810 Facial weakness (principal); F17.210 Nicotine dependence, cigarettes, uncomplicated; Z79.899 Other long term (current) drug therapy
CPT/HCPCS: 36415; 70450; 80053; 85025; 85610; 93005; 99284

== ENCOUNTER 2022-06-03 15:17 | Outpatient (REF) | payer OTHER, SELFPAY ==
[2022-06-04 21:23] LABS: Lyme Abs Screen <0.90 index
== END 2022-06-03 15:18 | disposition home or self-care (01) ==
LOC: HO.LAB 15:17
PROVIDERS: PCP Internal Medicine Geriatric Medicine; Visit Provider Internal Medicine Geriatric Medicine
DX: G51.0 Bell's palsy (principal)
CPT/HCPCS: 36415; 86617; 86618

== ENCOUNTER 2022-12-17 10:11 | Outpatient (REF) | payer OTHER, SELFPAY ==
[2022-12-17 11:16] LABS: MANUAL DIFF FLAG NO
[2022-12-17 11:36] LABS: Basophils Absolute Auto 0.1 X10*3/uL (0.0-0.2); Basophils Percent Auto 0.7 % (0-2); Eosinophils Absolute Auto 0.2 X10*3/uL (0.0-0.4); Eosinophils Percent Auto 2.9 % (0-4); Hemoglobin 13.6 g/dl (12.0-16.0); Imm Gran Abs Auto 0.01 X10*3/uL (0.00-0.03); Imm Gran Pct Auto 0.1 % (0.0-0.4); Lymphocytes Absolute Auto 2.6 X10*3/uL (1.2-4.9); Lymphocytes Percent Auto 37.8 % (20-40); Mean Corpuscular HGB Conc 33.2 g/dl (31.0-35.0); Mean Corpuscular Hemoglobin 28.6 pg (27.0-33.0); Mean Corpuscular Volume 86.1 fL (80.0-98.0); Mean Platelet Volume 10.6 fL (9.4-12.3); Monocytes Absolute Auto 0.6 X10*3/uL (0.1-1.2); Monocytes Percent Auto 8.1 % (2-11); Neutrophils Absolute Auto 3.5 x10*3/uL (2.0-8.3); Neutrophils Percent Auto 50.4 % (45-73); Platelet Count 214 X10*3/uL (160-400); Red Blood Count 4.76 X10*6/uL (4.20-5.50); Red Cell Distribution Width 13.1 % (11.0-16.0); White Blood Count 6.9 X10*3/uL (4.8-10.8)
[2022-12-17 12:06] LABS: Alanine Aminotransferase 16 U/L (0-31); Albumin Level 4.4 g/dL (3.5-5.0); Alkaline Phosphatase 88 U/L (39-117); Anion Gap 14 (12-20); Aspartate Amino Transferase 20 U/L (5-31); Bilirubin Direct < 0.2 mg/dL (0.0-0.5); Bilirubin Total 0.2 mg/dL (0.0-1.0); Blood Urea Nitrogen 12 mg/dL (9-16); Calcium 10.1 mg/dL (8.4-10.2); Carbon Dioxide 26 mmol/L (22-29); Chloride 107 mmol/L (96-108); Cholesterol 250 mg/dL; Estimated Glomerular Filt Rate > 60; Glucose Random 90 mg/dL (60-115); HDL Cholesterol 54 mg/dL; LDL Cholesterol Calculated 167 mg/dl; Potassium 3.9 mmol/L (3.3-5.1); Sodium 143 mmol/L (135-145); Total Protein 7.2 g/dL (6.5-8.0); Triglycerides 148 mg/dL
[2022-12-18 04:14] LABS: HBc Num1 0.05 S/CO (0.00-0.79); HBsAGNum1 0.31 S/CO (0.00-0.99); HIV AB/AG Nonreactive (Nonreactive); HIV Num 1 0.06 S/CO (0.00-0.99); Hepatitis A Antibody IgM 0.16 Index (0-0.79); Hepatitis B Core Antibody Nonreactive (Nonreactive); Hepatitis B Surface Antigen Negative (Negative); ~HepC Num1 0.06 S/CO (0.00-0.79); ~Hepatitis A Antibody IgM Nonreactive (Nonreactive); ~Hepatitis B Surface Antibody REACTIVE (Nonreactive); ~Hepatitis C Antibody Nonreactive (Nonreactive)
[2022-12-20 17:43] LABS: Rubeola IgG (Measles) <13.50 AU/mL
[2022-12-20 21:24] LABS: Rubella IgG Antibody 2.12 Index
== END 2022-12-17 10:12 | disposition home or self-care (01) ==
LOC: HO.HHCL 10:11
PROVIDERS: Visit Provider Internal Medicine
DX: Z00.00 Encounter for general adult medical examination without abnormal findings (principal); Z11.4 Encounter for screening for human immunodeficiency virus [HIV]; G43.009 Migraine without aura, not intractable, without status migrainosus
CPT/HCPCS: 36415; 80048; 80061; 80076; 85025; 86704; 86706; 86709; 86735; 86762; 86765; 86803; 87340; 87389

== ENCOUNTER 2023-01-29 10:24 | Outpatient (REF) | payer OTHER, SELFPAY | END 2023-01-29 10:25 | disposition home or self-care (01) | LOC: HO.MAMMO 10:24 | PROVIDERS: Visit Provider Internal Medicine | DX: Z12.31 Encounter for screening mammogram for malignant neoplasm of breast (principal) | CPT/HCPCS: 77063; 77067 ==

== ENCOUNTER → 2023-01-29 10:35 | Outpatient (BNV) | payer OTHER, SELFPAY | PROVIDERS: Visit Provider Radiology Diagnostic Radiology | DX: Z12.31 Encounter for screening mammogram for malignant neoplasm of breast (principal) | CPT/HCPCS: 77063; 77067 ==

== ENCOUNTER 2023-03-30 | Outpatient (REF) | payer OTHER, SELFPAY | END 2023-03-30 00:01 | disposition home or self-care (01) | LOC: HO.HHCLNP | PROVIDERS: Visit Provider Internal Medicine Geriatric Medicine | DX: J02.9 Acute pharyngitis, unspecified (principal) | CPT/HCPCS: 87070 ==

== ENCOUNTER 2023-06-29 16:57 | Outpatient (REF) | payer OTHER, SELFPAY ==
--- NOTE | ~2023-06-29 | XR_ITS ---
EXAMINATION: XR cervical spine 5V CLINICAL INFORMATION: Pain COMPARISON: None TECHNIQUE: 5 views of the cervical spine were obtained. FINDINGS: The cervical spine is visualized to the level of T1 on the lateral view. 1 mm of anterolisthesis of C4 on C5. Vertebral body heights are maintained. Lateral masses of C1 are well aligned on C2. Visualized portion of the dens is intact. Mild degenerative disc disease at C6/C7, manifested by disc space narrowing and osteophytosis. Uncovertebral hypertrophy and facet arthropathy results in mild to moderate neural foraminal narrowing on the right at multiple levels and in mild neural foraminal narrowing on the left at C7/T1. No prevertebral soft tissue swelling. XR/XR cervical spine 5V IMPRESSION: * Mild spondylosis of the cervical spine, as above detailed. * 1 mm of anterolisthesis of C4 on C5.
== END 2023-06-29 16:58 | disposition home or self-care (01) ==
LOC: HO.XRAY 16:57
PROVIDERS: PCP Internal Medicine; Visit Provider Internal Medicine
DX: M54.2 Cervicalgia (principal)
CPT/HCPCS: 72050

== ENCOUNTER 2024-01-18 12:46 | Outpatient (REF) | payer BC, SELFPAY ==
--- NOTE | ~2024-01-18 | US_ITS ---
EXAMINATION: US PELVIS CLINICAL INFORMATION: Left lower quadrant pain, postmenopausal. COMPARISON: 02/11/2021. TECHNIQUE: Ultrasound of the pelvis is performed using both transabdominal and transvaginal transducers along with Doppler. Transvaginal imaging is performed due to inadequate visualization transabdominally FINDINGS: The uterus is retroverted and measures 6.1 x 3.1 x 4.1 cm. 1.4 x 1.3 x 1.2 cm right uterine mass characteristic of a fibroid. Previous exam of 02/11/2021 demonstrated a 1.9 x 1.7 x 1.5 cm right-sided fundal fibroid. Bilateral ovaries were not visualized. Limited visualization due to bowel gas and body habitus. No significant free fluid. US/US pelvic and transvaginal IMPRESSION: 1.4 x 1.3 x 1.2 cm right uterine mass characteristic of a fibroid. Previous exam of 02/11/2021 demonstrated a 1.9 x 1.7 x 1.5 cm right-sided fundal fibroid. Electronically signed by: Mignon Santiago MD 01/24/2024 01:37 PM EDT
== END 2024-01-18 12:47 | disposition home or self-care (01) ==
LOC: HO.US 12:46
PROVIDERS: PCP Internal Medicine; Visit Provider Internal Medicine
DX: N94.89 Other specified conditions associated with female genital organs and menstrual cycle (principal)
CPT/HCPCS: 76830; 76856

== ENCOUNTER 2024-02-04 10:12 | Outpatient (REF) | payer BC, SELFPAY ==
--- NOTE | ~2024-02-04 | MM_ITS ---
EXAMINATION: MM SCREENING DIGITAL BREAST TOMOSYNTHESIS, BILATERAL CLINICAL INFORMATION: Screening. Asymptomatic. COMPARISON: Mammography: Comparison is made with available priors TECHNIQUE: Digital breast mammography with tomosynthesis is performed in both the craniocaudal and mediolateral oblique views along with computer-aided detection (CAD). FINDINGS: There are scattered areas of fibroglandular density (ACR BI-RADS breast composition Category b). There are no significant masses, abnormal calcifications, or other abnormalities. MM/MM tomosynthesis screening BI IMPRESSION: No mammographic evidence of malignancy. ASSESSMENT: BI-RADS BI-RADS 1 - Negative RECOMMENDATION: Routine annual mammography screening. 1 year F/U This examination should not preclude the clinical evaluation of a suspicious palpable abnormality. This patient's information was entered into a reminder system with a target due date for their next mammogram. Electronically signed by: Bridget Villagran DO 02/17/2024 09:31 AM EDT
== END 2024-02-04 10:13 | disposition home or self-care (01) ==
LOC: HO.MAMMO 10:12
PROVIDERS: PCP Internal Medicine; Visit Provider Internal Medicine Geriatric Medicine
DX: Z12.31 Encounter for screening mammogram for malignant neoplasm of breast (principal)
CPT/HCPCS: 77063; 77067

== ENCOUNTER → 2024-02-04 10:15 | Outpatient (BNV) | payer BC, SELFPAY | PROVIDERS: PCP Internal Medicine; Visit Provider Internal Medicine | DX: Z12.31 Encounter for screening mammogram for malignant neoplasm of breast (principal) | CPT/HCPCS: 77063; 77067 ==

== ENCOUNTER 2024-04-23 10:09 | Outpatient (REF) | payer BC, SELFPAY ==
[2024-04-23 10:32] LABS: MANUAL DIFF FLAG NO
[2024-04-23 11:15] LABS: Basophils Percent Auto 0.6 % (0-2); Eosinophils Absolute Auto 0.1 X10*3/uL (0.0-0.4); Eosinophils Percent Auto 1.6 % (0-4); Hematocrit 39.3 % (37.0-47.0); Hemoglobin 13.1 g/dl (12.0-16.0); Imm Gran Abs Auto 0.02 X10*3/uL (0.00-0.03); Imm Gran Pct Auto 0.3 % (0.0-0.4); Lymphocytes Absolute Auto 1.9 X10*3/uL (1.2-4.9); Lymphocytes Percent Auto 28.3 % (20-40); Mean Corpuscular HGB Conc 33.3 g/dl (31.0-35.0); Mean Corpuscular Hemoglobin 28.5 pg (27.0-33.0); Mean Corpuscular Volume 85.4 fL (80.0-98.0); Mean Platelet Volume 10.5 fL (9.4-12.3); Monocytes Absolute Auto 0.5 X10*3/uL (0.1-1.2); Monocytes Percent Auto 7.7 % (2-11); Neutrophils Absolute Auto 4.2 x10*3/uL (2.0-8.3); Neutrophils Percent Auto 61.5 % (45-73); Platelet Count 245 X10*3/uL (160-400); Red Cell Distribution Width 13.2 % (11.0-16.0); White Blood Count 6.8 X10*3/uL (4.8-10.8)
[2024-04-23 11:28] LABS: Estimated Average Glucose 103 mg/dL; Hemoglobin A1c % 5.2 % (<6.0); Total Hemoglobin (HGBA1C) 3299.8609 umol/L
[2024-04-23 12:19] LABS: Alanine Aminotransferase 18 U/L (0-31); Albumin Level 4.2 g/dL (3.5-5.0); Alkaline Phosphatase 84 U/L (39-117); Anion Gap 9 (12-20); Aspartate Amino Transferase 21 U/L (5-31); Bilirubin Total 0.3 mg/dL (0.0-1.0); Blood Urea Nitrogen 13 mg/dL (9-16); Calcium 9.1 mg/dL (8.4-10.2); Carbon Dioxide 28 mmol/L (22-29); Chloride 109 mmol/L (96-108); Cholesterol 206 mg/dL (<200); Estimated Glomerular Filt Rate > 60; Glucose Random 98 mg/dL (60-115); HDL Cholesterol 50 mg/dL (>40); LDL Cholesterol Calculated 131 mg/dL (<100); Potassium 3.8 mmol/L (3.3-5.1); Sodium 142 mmol/L (135-145); Triglycerides 126 mg/dL (<150)
[2024-04-23 12:22] LABS: Folate 13.6 ng/mL (> or = 4.0); Vitamin B12 297 pg/mL (200-900)
[2024-04-23 12:26] LABS: TSH reflex Free T4 1.08 uIU/mL (0.32-4.0); Vitamin D 25-OH Total 30.7 ng/mL (>30)
[2024-04-23 12:28] LABS: HIV AB/AG Nonreactive (Nonreactive); HIV Num 1 0.09 S/CO (0.00-0.99); ~HepC Num1 0.06 S/CO (0.00-0.79); ~Hepatitis C Antibody Nonreactive (Nonreactive)
== END 2024-04-23 10:10 | disposition home or self-care (01) ==
LOC: HO.LAB 10:09
PROVIDERS: PCP Internal Medicine; Visit Provider Internal Medicine
DX: R53.83 Other fatigue (principal); Z13.1 Encounter for screening for diabetes mellitus
CPT/HCPCS: 36415; 80053; 80061; 82306; 82607; 82746; 83036; 84443; 85025; 86803; 87389

== ENCOUNTER 2024-06-05 13:25 | Outpatient (AMB) | payer BC, SELFPAY ==
--- NOTE | 2024-06-05 13:26 | A.OFFVIS_ITS ---
Vital Signs 06/05/24 13:34 Height 5 ft 5 in Weight 140 lb BMI 23.3 BP 126/72 Intake Visit Reasons: New patient Uterine Leiomyoma Surgical Oncologist: Surgical Oncologist Present (Daniela) Accompanied by: Self / Same As Patient Allergies No Known Allergies [No Known Allergies*] Allergy (Verified 06/05/24 13:35) HPI Comments Details: Presenting referred from her PCP regarding uterine myoma the patient is doing well with no complaints no vaginal bleeding no pelvic pressure or pain. Pelvic ultrasound done in 01/23 showed the following: The uterus is retroverted and measures 6.1 x 3.1 x 4.1 cm. 1.4 x 1.3 x 1.2 cm right uterine mass characteristic of a fibroid. Previous exam of 02/11/2021 demonstrated a 1.9 x 1.7 x 1.5 cm right-sided fundal fibroid. Bilateral ovaries were not visualized. Limited visualization due to bowel gas and body habitus. No significant free fluid. Last co testing in 01/20 was negative Last mammogram in 02/22 was BI-RADS 1 Last colonoscopy in 2016 according to the patient, no records available [facility] Medical History Constipation Hemorrhoids GERD (gastroesophageal reflux disease) Allergic rhinitis Asthma Surgical History Hx of tubal ligation Family History Father Heart attack CVD (cardiovascular disease) Sister Cancer Mother HTN (hypertension) Maternal Aunt Lupus Social History Alcohol intake: current Patient Tobacco Use Status: Current everyday Tobacco user Tobacco use type: Cigarette Cigarettes Per Day: 10 Years Smoked: 20 Current occupational status: employed 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 Reproductive History Menstrual Age of Menarche: 14 Total pregnancies: 3 Full term: 3 Date of last pap smear: 01/27/21 (negative pap smear, negative hpv) Date of Mammogram: 02/04/24 (bi rad 1) Review of Systems Const All systems reviewed & are unremarkable except as noted in HPI and below Reports as per HPI and Reports no additional complaints Card Reports as per HPI Resp Reports as per HPI GI Reports no additional complaints Reports no additional complaints Physical Exam Vital Signs: Last Vital Signs BP 126/72 06/05/24 13:34 BMI result Body Mass Index 23.3 Const General: cooperative, healthy appearing and comfortable Chest Chest palpation & inspection: normal inspection of the chest and normal palpation of entire chest wall Breast/axilla inspection: normal inspection of the breasts and normal inspection of the axillae Breast/axilla palpation: normal palpation of the breasts, normal palpation of the axillae and no axillary lymphadenopathy Resp Effort & Inspection: normal respiratory effort Auscultation: clear to auscultation bilaterally Percussion: percussion normal Cardio Palpation: normal PMI Rate: regular rate Rhythm: regular rhythm Heart sounds: no murmurs and no rubs Peripheral pulses: Peripheral pulses 2+ throughout GI Inspection: Yes normal to inspection Palpation (GI): Soft to palpation, nontender, no guarding, not rigid and No hepatosplenomegaly present Percussion: Yes normal to percussion Auscultation: normal bowel sounds Rectal Exam - Female: deferred General: Yes bladder normal to palpation External Female Exam: No lesion Speculum Exam - Vagina: normal appearance of the vagina, normal palpation, normal vaginal discharge and not erythematous Speculum Exam - Cervix: normal appearance of the cervix and normal palpation Bimanual exam- vagina & uterus: normal bimanual exam, normal palpation, uterine size normal, bladder normal to palpation, consistency normal and normal palpation Bimanual Exam- Adnexa, other: normal adnexae, no masses and no tenderness Assessment & Plan Assessment & Plan (1) Uterine myoma: Code(s): D25.9 - Leiomyoma of uterus, unspecified Category: Medical Plan: Discussed with the patient the findings on pelvic ultrasound & the risk of myosarcoma; discussed with the patient the options of treatment including expectant management versus hysterectomy; the pros and cons, risks benefits of each approach were discussed with the patient including the fact that in cases of myosarcoma, surgical treatment can lead to early diagnosis and positively affects the prognosis; after further discussion, the patient decided to proceed with expectant management. Will repeat pelvic ultrasound periodically. Instructions given to patient to call in case any of the following occurs: pressure symptoms, abnormal uterine bleeding, pelvic pain; and to schedule a 12 months pelvic ultrasound (order placed) and a follow-up appointment . All questions answered, the patient verbalized understanding and agreed with the plan . (2) Well woman exam: Code(s): Z01.419 - Encounter for gynecological examination (general) (routine) without abnormal findings Category: Medical Plan: Co testing not indicated this year. Counseled the patient about the recommended dietary allowance of 1200 mg of Calcium & 600 IU of vitamin D. Instructions given the patient to schedule next screening Mammogram in 02/23. The patient was instructed to call her GI inquire about the her next screening colonoscopy . The patient was instructed to perform monthly self-breast exams and schedule annual exam in a year. All questions answered and the patient verbalized understanding. Orders: Orders US pelvic and transvaginal 1 Year D25.9 - Leiomyoma of uterus, unspecified Coding Level of Care Code New Pt Level 3 (67401) Diagnoses Uterine myoma D25.9 Well woman exam Z01.419
[2024-06-05 13:34] VITALS: BP 126/72; BMI 23.3
--- OUTSIDE RECORDS SUMMARY | 2024-06-05 13:38 | XMS_ITS | Encounter Summary ---
Author Organization [employer] Address [address] [place] [address] Care Team Providers Care Service Dispatcher Name Role Phone Gege Magallanes MD Primary Care Provide r Reason for Visit * Reason Onset Date Comments Nurse Triage 03/13/2024 Encounter Details Date Type Department Care Team ([facility] st Contact Info) Description 03/13/2024 Telephone [facility] [address], [place] [phone] Gege Magallanes MD [address] [place] [address] Nurse Triage Social History Tobacco Use Types Packs/Day Years Used Date Smoking Tobacco: Every Day Cigarettes Passive Smoke Exposure: Current Smokeless Tobacco: Former Alcohol Use Standard Drinks/Week Comments Never 0 (1 standard drink = 0.6 oz pur e alcohol) Depression Answer Date Recorded Patient Health Questionnaire-9 Score 0 03/26/2024 Patient Health Questionnaire-9 Score 0 03/26/2024 Last PHQ-9: Questionnaire Data Not on file 1 05/26/2023 Housing Stability Answer Date Recorded What is your housing situation today? I have torie raphael 02/15/[address] you li ve. Do you have problems with any of the following? None of the above 02/15/2024 Food Insecurity Answer Date Recorded Within the past 12 months, y ou worried that your food would run out before you got money to buy more: Never True 02/15/2024 Within the past 12 months,th e food you bought just didn't last and you didn't have enough money to get more: Never True Transportation Answer Date Recorded In the past 12 months, has l ack of transportation kept you from medical appts, meetings, work or from getting things needed for daily living? No 02/15/2024 Utilities Answer Date Recorded In the past 12 months, has t he electric, gas, oil or water company threatened to shut off services in your home? No 02/15/2024 Depression Answer Date Recorded Patient Health Questionnaire-2 Score 0 03/26/2024 Internet Access Answer Date Recorded Internet Access Q1 Yes 02/15/2024 Internet Access Q2 Not on file 02/15/2024 Comments Unknown Sex and Gender Information Value Date Recorded Sex Assigned at Female 03/01/2022 10:17 AM EDT Legal Sex Female 10:17 AM EDT Gender Identity Female 03/01/2022 10:17 AM EDT Sexual Orientation Straight 03/01/2022 10 :17 AM EDT documented as of this encounter Miscellaneous Notes * Telephone Encounter - Carmen Eubanks RN - 03/13/2024 4:38 PM EST Triage call to Pt who is requesting information regarding referrals that have been requested for [facility] 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 Pt did go to [facility] today but, said it was too long a wait. Pt is advised to go to ED closest to Pt if pain is increased and Pt agreed. Protocol Used: Information Only Call - No Triage (Adult) Protocol-Based Disposition: Discuss with PCP and Callback by Nurse Today Video visit not offered Positive Triage Question: * Requesting referral to a specialist * All higher-acuity triage questions were negative Care Advice Discussed: * Reasons To Call Back - New symptoms develop - You have more questions - You become worse * Telephone Encounter - Drea Miller - 03/13/2024 4:08 PM EST Symptom: Abdominal Pain - Female - Not Outcome: Talk to a nurse or provider within 15 minutes Reason: Severe pain now The caller accepted this outcome. Please contact at [phone] Swazi documented in this encounter Plan of Treatment Upcoming Encounters Date Type Department Care Team (Late st Contact Info) Description 07/23/2024 3:30 PM EDT Office Visit [facility] [address] [place] [address] Gege Magallanes MD [address] [place] [address] documented as of this encounter Goals Goal Patient Goal Type Associated Problems Recent Progress Patient-Stated? Author Smoking cessation General Irina Motta, PharmD Note: Wear the nicotine patch from early evening until late morning to cover the times of day that you are smoking. May remove during the work day. Try and decrease nighttime cigarettes by 50% documented as of this encounter Visit Diagnoses Not on filedocumented in this encounter Additional Health Concerns Assessment Noted Time PHQ-9 Depression Total Score: 1 12/18/19 23 9:16 AM EDT documented as of this encounter Care Teams Service Dispatcher Relationship Specialty Start Date End Date Gege Magallanes MD [address] [place] [address] PCP - General Internal Medicine 12/07/22 documented as of this encounter
--- OUTSIDE RECORDS SUMMARY | 2024-06-05 13:38 | XMS_ITS | Encounter Summary ---
Author Organization [employer] Address [address] [place] [address] Care Team Providers Care Power Saw Mechanic Name Role Phone Gege Magallanes MD Primary Care Provide r Reason for Visit * Reason Onset Date Comments Nurse Triage 01/30/2024 Encounter Details Date Type Department Care Team ([facility] st Contact Info) Description 01/30/2024 Telephone [facility] MED[facility]INE [address] [place], [place] [phone] Gege Magallanes MD [address] [place] [address] Nurse Triage Social History Tobacco Use Types Packs/Day Years Used Date Smoking Tobacco: Every Day Cigarettes Smokeless Tobacco: Former Depression Answer Date Recorded Patient Health Questionnaire-9 [...] encounter Miscellaneous Notes * Telephone Encounter - Drea Miller - 01/30/2024 12:45 PM EDT Symptom: Dizziness Outcome: Schedule an urgent appointment (within 4 hours) or talk to a nurse or provider soon Reason: Getting worse The caller accepted this outcome. Please contact at [phone] documented in this encounter Plan of Treatment Upcoming Encounters Date Type Department Care Team (Late st Contact Info) Description 07/23/2024 3:30 PM EDT Office Visit [facility]INE [address] [place] [address] Gege Magallanes MD [address] [place] [address] documented as of this encounter Goals Goal Patient Goal Type Associated Problems Recent Progress Patient-Stated? Author Smoking cessation General No Irina Carter, VeenaD Note: Wear the nicotine patch from early [...] documented as of this encounter Care Teams Power Saw Mechanic Relationship Specialty Start Date End Date Gege Magallanes MD [address] [place] [id number] PCP - General Internal Medicine 12/07/22 documented as of this encounter
--- OUTSIDE RECORDS SUMMARY | 2024-06-05 13:38 | XMS_ITS | Encounter Summary ---
Author Organization [employer] Address [address] [place] [address] Care Team Providers Care Quarter Backer Name Role Phone Gege Magallanes MD Primary Care Provide r Reason for Visit * Reason Onset Date Comments JUNE RECALL 05/18/2024 Encounter Details Date Type Department Care Team ([facility] Contact Info) Description 05/18/2024 Telephone [facility] [address], [place] [id number] Shavonne Rees MA JUNE RECALL Social History Tobacco Use Types Packs/Day Years [...] encounter Miscellaneous Notes * Telephone Encounter - Shavonne Rees MA - 05/18/2024 2:04 PM EST TC- Patient to schedule an appt (June) with [facility] to call back to sche appt.Mailed recall letter. documented in this encounter Plan of Treatment Upcoming Encounters Date Type Department Care Team (Late st Contact Info) Description 07/23/2024 3:30 PM EDT Office Visit [facility] [address] [place] [address] Gege Magallanes MD [address] [place] [address] documented as of this encounter Goals Goal Patient Goal Type Associated Problems Recent Progress Patient-Stated? Author Smoking cessation General No Irina Carter, PharmD Note: Wear the nicotine patch from early evening until late morning to cover the times of day that you are smoking. May remove during the work day. Try and decrease nighttime cigarettes by 50% documented as of this encounter Visit Diagnoses Not on filedocumented in this encounter Additional Health Concerns Assessment Noted Time PHQ-9 Depression Total Score: 0 03/26/20 3:20 PM EST documented as of this encounter Care Teams Quarter Backer Relationship Specialty Start Date End Date Gege Magallanes MD [address] [place] [address] PCP - General Internal Medicine 12/07/22 documented as of this encounter
--- OUTSIDE RECORDS SUMMARY | 2024-06-05 13:38 | XMS_ITS | Clinical Summary ---
Author Organization [employer] Address [address] [facility] 7[address] [place] [address] Care Team Providers Care Sugar Trucker Name Role Phone Gege Magallanes MD Primary Care Provide r Allergies No known active allergies Medications cetirizine (ZyrTEC) 10 MG tabletIndication s:Allergic rhinitis, unspecified seasonality, unspecified trigger Take 1 tablet (10 mg) by mouth in the morning. 30 tablet 2 3 Active albuterol 108 (90 Base) MCG/ACT inhaler Inhale 2 puffs every 6 (six) hours if needed for wheezing. 18 g 11 3 Active nicotine (Nicoderm CQ) 14 MG/24HR patchIndications :Tobacco dependence syndrome Place 1 patch on the skin 1 (one) time each day at the same time. 28 patch 2 4 Active nicotine polacrilex (Commit) 2 MG lozenge Dissolve 1 lozenge (2 mg) in the mouth if needed for smoking cessation. Max 20 lozenges per day 144 lozenge 3 4 Active Active Problems Problem Noted Date Diagnosed Date Uterine fibroid 02/22/2024 Chronic nonintractable headache 02/22/2024 Diminished vision 02/22/2024 Frontal sinusitis 02/22/2024 Other fatigue 02/22/2024 Neck pain 06/16/2023 Assessment & Plan (07/13/2023 4:32 PM EDT): Apply heat on affected area Ibuprofen PRN Flexeril 5mg Q 8hrs, patient is aware of side effect somnolence I advise not to drive or do activities that requires her attention F/u with orthopedics Assessment & Plan (06/16/2023 12:24 PM EST): Patient has an appointment with chiropractor today I will order XRAY and f/u with her Colon cancer screening 06/16/2023 Assessment & Plan (06/16/2023 12:25 PM EST): Colorguard ordered Skin lesion 02/11/2023 Assessment & Plan (02/11/2023 11:55 PM EDT): -Right upper arm ---patient with right upper arm skin lesion -appears as nevus?-bluish ,raised -aprox 0.5 cm irregular and tender causing discomofrt -no signs of infection -advised to use ice in area for discomfort, tylenol prn -referred to fur ironer -may need bx -alarm signs and symptoms discussed Health care maintenance 12/17/2022 Arthritis 02/12/2015 Gastroesophageal reflux disease without esophagi tis 02/12/2015 Tobacco dependence syndrome 02/12/2015 Assessment & Plan (06/16/2023 12:24 PM EST): Counseling done Assessment & Plan (12/17/2022 9:57 AM EDT): Counseling done today Urinary incontinence, mixed 03/05/2013 Assessment & Plan (12/17/2022 9:57 AM EDT): Followed by urology Migraine 11/28/2012 Assessment & Plan (06/16/2023 12:24 PM EST): Controlled I advise to avoid migraine triggers like red wine, chocolate, cheese, strong perfumes Assessment & Plan (12/17/2022 9:58 AM EDT): Controlled continue with current interventions Allergic rhinitis 07/21/2012 Asthma 07/21/2012 Encounters Date Type Department Care Team Description 05/18/2024 Telephone [facility] [address] [place] [phone] Shavonne Rees MA June/25/2024 Travel 03/13/2024 Telephone [facility] [address], [place] [phone] Gege Magallanes MD Nurse Triage 03/13/2024 Travel from Last 3 Months Immunizations Name Administration Dates Next Due Hep B, adult 02/17/2018,01/20/2018 Influenza Injectable Quadriv alant Preservative Free IIV4 MDCK 01/19/2022,01/23/2021,02/05/2020,01/18,02/19/2019 Influenza injectable quadriv alent IIV4 with preservative 02/17/2018 Influenza injectable quadriv alent preservative free 06/16/2023,02/23/2017,02/03/2015 Influenza, IIV3, injectable 02/15/2011 Influenza, Split (incl. holly fied surface antigen) 03/05/2013 MMR 02/17/2018,06/14/2008 Pfizer Covid-19 Vaccine 12+ 06/16/2023 Pneumococcal Polysaccharide PPSV23 06/24/2006 TD (adult), 2 Lf tetanus tox oid, preservative free, adsorbed 06/14/2008 Tdap 09/03/2013 Social History Tobacco Use Types Packs/Day Years Used Date Smoking Tobacco: Every Day Cigarettes Passive Smoke Exposure: Current Smokeless Tobacco: Former Tobacco Cessation:Ready to Q uit: Not Asked; Counseling Given: Not Answered Alcohol Use Standard Drinks/Week Comments Never 0 [...] Orientation Straight 03/01/2022 10 :17 AM EDT Last Filed Vital Signs Vital Sign Reading Time Taken Comments Blood Pressure 112/75 03/13/2024 1:46 PM EST Pulse 75 03/13/2024 1:46 PM EST Temperature 36.8 ??C (98.2 ??F) 03/13/2024 1:46 PM ES T Respiratory Rate 16 03/13/2024 1:46 PM EST Oxygen Saturation 98% 03/13/2024 1:46 PM EST Inhaled Oxygen Concentration - - Weight 65.8 kg (145 lb) 03/13/2024 1:46 PM EST Height 162.6 cm (5' 4 ) 02/22/2024 11:43 AM EDT Body Mass Index 24.89 02/22/2024 11:43 AM EDT Plan of Treatment Upcoming Encounters Date Type Department Care Team (Late st Contact Info) Description 07/23/2024 3:30 PM EDT Office Visit [facility] [address] [place] [phone] Gege Magallanes MD [address] [place] [phone] Health Maintenance Due Date Last Done Comments CT Colonography 1971 Colonoscopy 1971 FIT 1971 FOBT 1971 Sigmoidoscopy 1971 Family Planning (PISQ) 1986 Hepatitis A Vaccines (1 of 2 - Risk 2-dose series) 1990 Pap Smear 1992 Pneumococcal Vaccine: 50+ Years (2 of 2 - PCV) 06/24/2007 06/24/2006 Hepatitis B Vaccines (3 of 3 - 19+ 3-dose series) 07/20/2018 02/17/2018, 01/20/2018 Zoster Vaccines (1 of 2) 2021 DTaP/Tdap/Td Vaccines (2 - Td or Tdap) 09/04/2023 09/03/2013, 06/14/2008 COVID-19 Vaccine ( season) 2024 06/16/2023, 03/30/2021, 08/07/2020, Additional history exists Mammogram 02/03/2025 02/04/2024, 01/01, 01/15/2021 SDOH Screening 02/14/2025 02/15/2024 Tobacco Screening 03/13/2025 03/13/2024 Alcohol/Substance Use Screening 03/26/2025 03/26/2024 Depression Screening 03/26/2025 03/26/2024, 03/26/20 24 Cervical Cancer Screening 01/27/2026 HPV/Cotest 01/27/2026 01/27/2021, 01/01, 02/23/2017 Colorectal Cancer Screening 07/08/2026 FIT DNA/Cologuard 07/08/2026 07/09/2023 Lipid Panel 04/23/2029 04/23/2024, 11/30, 10/29/2021, Additional history exists RSV Patients and Patients Aged 60 years or older (1 - 1-dose 75+ series) 2046 Influenza Vaccine Completed 01/28/2024, , 01/19/2022, Additional history exists HIV Screening Completed 04/23/2024, 12/17/2022 Hepatitis C Screening Completed 04/23/2024, 023 HIB Vaccines Aged Out No longer eligi ble based on patient's age to complete this topic HPV Vaccines Aged Out No longer eligi ble based on patient's age to complete this topic IPV Vaccines Aged Out No longer eligi ble based on patient's age to complete this topic Meningococcal Vaccine Aged Out No blas denilson eligible based on patient's age to complete this topic RSV under 20 months Aged Out No longe r eligible based on patient's age to complete this topic Rotavirus Vaccines Aged Out No longer eligible based on patient's age to complete this topic Goals Goal Patient Goal Type Associated Problems Recent Progress Patient-Stated? Author Smoking cessation General No Irina Carter, PharmD Note: Wear the nicotine patch from early evening until late morning to cover the times of day that you are smoking. May remove during the work day. Try and decrease nighttime cigarettes by 50% Procedures Procedure Name Priority Date/Time Associated Diagnosis Comments VITAMIN B12/FOLATE, SERUM PANEL Routine 04/23/2024 10:25 AM EST Other fatigue TSH W/REFLEX TO FT4 Routine 04/23/2024 1 0:25 AM EST Other fatigue VITAMIN D,25-OH,TOTAL,IA Routine 04/23/2024 10:25 AM EST Other fatigue LIPID PANEL, STANDARD Routine 04/23/2024 10:25 AM EST Other fatigue HEPATITIS C AB W/REFL TO HCV RNA, QN, PCR Routine 04/23/2024 10:25 AM EST Other fatigue HIV 1/2 ANTIGEN/ANTIBODY, FOURTH GENERATION W/RFL Routine 04/23/2024 10:25 AM EST Other fatigue HEMOGLOBIN A1C Routine 04/23/2024 10:25 AM EST Other fatigue COMPREHENSIVE METABOLIC PANEL Routine 04/23/2024 10:25 AM EST Other fatigue CBC WITH AUTO DIFFERENTIAL Routine 04/23/2024 10:25 AM EST Other fatigue BI MAMMOGRAM SCREENING TOMOSYNTHESIS BILATERAL Routine 02/04/2024 10:15 AM EDT LAB COLOGUARD?? COLON CANCER SCREEN Routine 07/09/2023 9:43 AM EST Colon cancer screening LjZZ HISTORICAL HPV E6/E7 RFLX ROMEL 16 18/45 Routine 01/27/2021 2:48 PM EDT from Last 3 Months or Most Recently Relevant to Health Maintenance Results * Vitamin D, 25-Hydroxy, Total, Immunoassay (04/23/2024 10:25 AM EST) Vitamin D 25-OH Total 30.7 >30 ng/mL [facility] Comment:Health Based Referen ce Values*< 20 ng/mL Yyhinmqoz75-44 ng/mL Insufficient> 30 ng/mL Sufficient*Jonathan MACHADO. N Engl J Med. 2007;357:266-280Care must be taken in interpreting Vitamin D results fromdifferent laboratories and methodologies. Published datademonstrated that results from patients undergoinghemodialysis may show a negative bias when tested withvarious automated 25-OH vitamin D assays when compared toLC-MS/MS.When testing samples from patients whose predominant form ofVitamin D is Vitamin D2, such as patients receiving VitaminD2 supplementation, results that are subtherapeutic shouldbe confirmed with another method such as LC-MS/MS. Blood Venous blood specimen / Unknown 04/23/2024 10:25 AM EST 04/23/2024 10:30 AM EST Gege Polk MD LAB BLOOD ORDERABLES Final Result [facility] [address] [place] [phone] * Vitamin B12/Folate, Serum Panel (04/23/2024 10:25 AM EST) Vitamin B12 297 200 - 900 pg/mL [facility] Comment:NORMAL 200-900 PG/ML INDETERMINATE 160-199 PG/ML DEFICIENT < 160 PG/ML Folate 13.6 > or = 4.0 ng/mL [facility] Comment:Reference Values:> o r = 4.0 ng/mL< 4.0 ng/mL suggests folate deficiency Methotrexate, aminopterin and folinic acid(leucovorin) are chemotherapeutic agents whose molecularstructures are similar to folate; therefore, the Architectfolate assay cannot be used for patients using these drugs. Blood Venous blood specimen / Unknown 04/23/2024 10:25 AM EST 04/23/2024 10:30 AM EST Gege Polk MD LAB BLOOD ORDERABLES Final Result Performing Organization Address [facility] Co de Phone Number [facility] [address] [place] [phone] * TSH with Reflex to Free T4 (04/23/2024 10:25 AM EST) Pathologist [facility] TSH reflex Free T4 1.08 0.32 - 4.0 uIU/mL [facility] Blood Venous blood specimen / Unknown 04/23/2024 10:25 AM EST 04/23/2024 10:30 AM EST us Gege Polk MD LAB BLOOD ORDERABLES Final Result Performing Organization Address [facility] Co de Phone Number [facility] [address] [place] [phone] * CBC auto differential (04/23/2024 10:25 AM EST) White Blood Count 6.8 4.8 - 10.8 X10*3/uL [facility] Red Blood Count 4.60 4.20 - 5.50 X10*6/uL [facility] Hemoglobin 13.1 12.0 - 16.0 g/dl [facility] Hematocrit 39.3 37.0 - 47.0 % [facility] Mean Corpuscular Volume 85.4 80.0 - 98.0 fL [facility] Mean Corpuscular Hemoglobin 28.5 27.0 - 33.0 pg [facility] Mean Corpuscular HGB Conc 33.3 31.0 - 35.0 g/dl [facility] Red Cell Distribution Width 13.2 11.0 - 16.0 % [facility] Platelet Count 245 160 - 400 X10*3/uL [facility] Mean Platelet Volume 10.5 9.4 - 12.3 fL [facility] Neutrophils Percent Auto 61.5 45 - 73 % [facility] Imm Gran Pct Auto 0.3 0.0 - 0.4 % [facility] Lymphocytes Percent Auto 28.3 20 - 40 % [facility] Monocytes Percent Auto 7.7 2 - 11 % [facility] Eosinophils Percent Auto 1.6 0 - 4 % [facility] Basophils Percent Auto 0.6 0 - 2 % [facility] NRBC Pct Auto 0.0 0.0 - 0.2 /100WBC [facility] Neutrophils Absolute Auto 4.2 2.0 - 8.3 x10*3/uL [facility] Imm Gran Abs Auto 0.02 0.00 - 0.03 X10*3/uL [facility] Lymphocytes Absolute Auto 1.9 1.2 - 4.9 X10*3/uL [facility] Monocytes Absolute Auto 0.5 0.1 - 1.2 X10*3/uL [facility] Eosinophils Absolute Auto 0.1 0.0 - 0.4 X10*3/uL [facility] Basophils Absolute Auto 0.0 0.0 - 0.2 X10*3/uL [facility] NRBC Abs Auto 0.000 0.0 - 0.012 X10*3/uL [facility] Blood Venous blood specimen / Unknown 04/23/2024 10:25 AM EST 04/23/2024 10:30 AM EST us Gege Polk MD LAB BLOOD ORDERABLES Final Result [facility] [address], [place] [phone] * Hepatitis C Antibody with Reflex to HCV, RNA, Quantitative, Real-Time PCR (04/23/2024 10:25 AM EST) Hepatitis C Antibody Nonreactive Nonreactive [facility] Comment:Antibodies to HCV no t detected; does not exclude early acuteHCV infection. Blood Venous blood specimen / Unknown 04/23/2024 10:25 AM EST 04/23/2024 10:30 AM EST us Gege Polk MD LAB BLOOD ORDERABLES Final Result [facility] [address] [place] [phone] * HIV-1/2 Antigen and Antibodies, Fourth Generation, with Reflexes (04/23/2024 10:25 AM EST) HIV AB/AG Nonreactive Nonreactive [facility] Comment:HIV-1 p24 Ag and/or HIV-1/HIV-2 Ab not detected.A test result that is nonreactive does not exclude thepossibility of exposure to or infection with HIV-1 and/orHIV-2. Nonreactive results in this assay for individualswith prior exposure to HIV-1 and/or HIV-2 may be due toantigen and antibody levels that are below the limit ofdetection of this assay.The [employer] HIV Ag/Ab Combo assay result andsupplemental assay results should be interpreted inconjunction with the patient's clinical presentation,history and other laboratory results. If the results areinconsistent with clinical evidence, additional testing issuggested to confirm the result. Blood Venous blood specimen / Unknown 04/23/2024 10:25 AM EST 04/23/2024 10:30 AM EST us Gege Polk MD LAB BLOOD ORDERABLES Final Result [facility] [address] [place] [phone] * Hemoglobin A1c (04/23/2024 10:25 AM EST) Hemoglobin A1c 5.2 <6.0 % [facility] Comment:Hemoglobin A1C Refer ence Range Adults: 4.8 - 6.0 % Non diabetic: < 6.0 % Goal: < 7.0 %Additional Action Suggested: > 8.0 %Note: Hemoglobin A1c results are invalid for patients with abnormal amounts of HbF. Blood transfusions may impact the HbA1c concentration in the patient sample. Estimated Average Glucose 103 mg/dL [facility] Comment:eAG = Estimated ave rage glucose which is %A1C expressed asaverage glucose, using the formula of the K5W-BkftgnlLaemwsi Glucose study (ADAG), Diabetes Care, Vol.31,#8,2007 Blood Venous blood specimen / Unknown 04/23/2024 10:25 AM EST 04/23/2024 10:30 AM EST us Gege Polk MD LAB BLOOD ORDERABLES Final Result [facility] [address] [place] [phone] * (ABNORMAL) Lipid Panel, Standard (04/23/2024 10:25 AM EST) Triglycerides 126 <150 mg/dL [facility] Comment:Desirable Triglyceri de: less than 150 mg/dLBorderline High Triglyceride 150-199 mg/dLHigh Triglyceride: 200-499 mg/dLVery High Triglyceride: greater than or equal to 5OO mg/dL Cholesterol 206(H) <200 mg/dL [facility] Comment:Desirable Cholestero l: less than 200 mg/dLBorderline High Cholesterol: 200-239 mg/dLHigh Cholesterol: greater than 239 mg/dL LDL Cholesterol Calculated 131(H) <100 mg/dL [facility] Comment:Desirable LDL: less than 100 mg/dLNear Optimal/Above Optimal LDL: 110- 129 mg/dLBorderline High LDL: 130-159 mg/dLHigh LDL: 160-189 mg/dLVery High LDL: greater than or equal to 190 mg/dL HDL Cholesterol 50 >40 mg/dL [facility] Comment:Desirable HDL: great er than 40 mg/dL Note: This HDL assay may give artificially low results in patients with liver disease. Blood Venous blood specimen / Unknown 04/23/2024 10:25 AM EST 04/23/2024 10:30 AM EST Gege Polk MD LAB BLOOD ORDERABLES Final Result [facility] [address] [place] [phone] * (ABNORMAL) Comprehensive Metabolic Panel (04/23/2024 10:25 AM EST) Sodium 142 135 - 145 mmol/L [facility] Potassium 3.8 3.3 - 5.1 mmol/L [facility] Chloride 109(H) 96 - 108 mmol/L [facility] Carbon Dioxide 28 22 - 29 mmol/L [facility] Anion Gap 9(L) 12 - 20 [facility] Urea Nitrogen (BUN) 13 9 - 16 mg/dL [facility] Creatinine, Serum 0.84 0.5 - 1.4 mg/dL [facility] Estimated Glomerular Filt Rate >60 [facility] Comment:Chronic Kidney Disea se: Estimated GFR < 60 mL/min/1.35p5Guqwyh Kidney Disease: Estimated GFR < 15 mL/min/1.73m2 Glucose 98 60 - 115 mg/dL [facility] Calcium 9.1 8.4 - 10.2 mg/dL [facility] Bilirubin, Total 0.3 0.0 - 1.0 mg/dL [facility] Aspartate Amino Transferase 21 5 - 31 U/L [facility] Alanine Aminotransferase 18 0 - 31 U/L [facility] Total Protein 7.0 6.5 - 8.0 g/dL [facility] Albumin Level 4.2 3.5 - 5.0 g/dL [facility] Alkaline Phosphatase 84 39 - 117 U/L [facility] Blood Venous blood specimen / Unknown 04/23/2024 10:25 AM EST 04/23/2024 10:30 AM EST us Gege Polk MD LAB BLOOD ORDERABLES Final Result Performing Organization Address [facility]/State/ZIP Co de Phone Number [facility] [address] [facility] [phone] * BI Mammogram Screening Tomosynthesis Bilateral (02/04/2024 10:15 AM EDT) Anatomical Region Laterality Modality Breast Bilateral Mammography 02/04/2024 10:1 5 AM EDT Narrative 02/17/2024 9:34 AM EDT ? [facility] ? [address] ?[place] [address] ? Mammography Report ? Signed ? Patient: Tnoy,Kristen I ?MR#: [id number] ?? 64 ? : 1970 ?Acct:[id number] ? Age/Sex: 53 / F ?ADM Date: 02/04/24 ? Loc: HO.MAMMO ? Attending Dr: Efraín Name MD ? Ordering Physician: Name,Efraín MD ?Results: 1Negative ? Date of Service: 02/04/24 ?Follow Up: 1 Year From Orig ?? inal Mammogram ? Procedure(s): MM tomosynthesis screening BI ?? Accession Number(s): [id number] ? cc: Gege Magallanes MD; Name,Efraín ROJAS ? EXAMINATION: ?? MM SCREENING DIGITAL BREAST TOMOSYNTHESIS, BILATERAL ? CLINICAL INFORMATION: ? Screening. Asymptomatic. ? COMPARISON: ?? Mammography: Comparison is made with available priors ? TECHNIQUE: ?? Digital breast mammography with tomosynthesis is performed in both the ?? craniocaudal and mediolateral oblique views along with computer-aided ?? detection (CAD). ? FINDINGS: ?? There are scattered areas of fibroglandular density (ACR BI-RADS breast ?? composition Category b). ? There are no significant masses, abnormal calcifications, or other ?? abnormalities. ? MM/MM tomosynthesis screening BI ?? IMPRESSION: ?? No mammographic evidence of malignancy. ? ASSESSMENT: ? BI-RADS BI-RADS 1 - Negative ? RECOMMENDATION: ?? Routine annual mammography screening. ? 1 year F/U ? This examination should not preclude the clinical evaluation of a ?? suspicious palpable abnormality. ? This patient's information was entered into a reminder system with a ?? target due date for their next mammogram. ? Electronically signed by: ??Bridget Villagran DO ??02/17/2024 09:31 AM EDT ? Dictated By: ?Bridget Villagran DO ? Signed By: ?<Electronically signed by Bridget Villagran, DO in OV> ? 02/17/24 0931 ? DD/ 1015 ? TD/TT: 02/04/24 1028 ? Provider Engagement Executive: ? Procedure Note Maira, Image - 02/17/2024 [facility] [address] [place] [address] [place] [place], [place] [address] Mammography Report Signed Patient: Kristen Tony [facility]#: [id number] 64 : 1970Acct:[id number] Age/Sex: 53 / FADM Date: 02/04/24 Loc: [facility] Attending DrYu Miller MD Ordering Physician: Efraín Milleresults: 1Negative Date of Service: 02/04/24Follow Up: 1 Year From Orig inal Mammogram Procedure(s): MM tomosynthesis screening BI Accession Number(s): [id number] cc: Gege Magallanes MD; Name,Efraín ROJAS EXAMINATION: MM SCREENING DIGITAL BREAST TOMOSYNTHESIS, BILATERAL CLINICAL INFORMATION: Screening. Asymptomatic. COMPARISON: Mammography: Comparison is made with available priors TECHNIQUE: Digital breast mammography with tomosynthesis is performed in both the craniocaudal and mediolateral oblique views along with computer-aided detection (CAD). FINDINGS: There are scattered areas of fibroglandular density (ACR BI-RADS breast composition Category b). There are no significant masses, abnormal calcifications, or other abnormalities. MM/MM tomosynthesis screening BI IMPRESSION: No mammographic evidence of malignancy. ASSESSMENT: BI-RADS BI-RADS 1 - Negative RECOMMENDATION: Routine annual mammography screening. 1 year F/U This examination should not preclude the clinical evaluation of a suspicious palpable abnormality. This patient's information was entered into a reminder system with a target due date for their next mammogram. Electronically signed by: Bridget Villagran DO 02/17/2024 09:31 AM EDT Dictated By: Bridget Villagran DO Signed By: <Electronically signed by Bridget Villagran DO in OV> 02/17/24 0931 DD/ 1015 TD/TT: 02/04/24 1028 Provider Engagement Executive: Efraín Miller MD [facility] [place]EDURES Final Result * Cologuard?? colon cancer screening (07/09/2023 9:43 AM EST) Cologuard Result Negative Negative 07/16/19 5:34 AM EDT [employer] (CLIA #:[id number]) Comment: NEGATIVE TEST RESULT. A negative Cologuard result indicates a low likelihood that a colorectal cancer (CRC) or advanced adenoma (adenomatous polyps with more advanced pre-malignant features) ??is present. The chance that a person with a negative Cologuard test has a colorectal cancer is less than 1 in 1500 (negative predictive value >99.9%) or has an ??advanced adenoma is less than ??5.3% (negative predictive value 94.7%). These data are based on a prospective cross-sectional study of 10,000 individuals at average risk for colorectal cancer who were screened with both Cologuard and colonoscopy. (Stephanie Rich al, N Engl J Med 2014;370(14):1286- 1297) The normal value (reference range) for this assay is negative. COLOGUARD RE-SCREENING RECOMMENDATION: Periodic colorectal cancer screening is an important part of preventive healthcare for asymptomatic individuals at average risk for colorectal cancer. ??Following a negative Cologuard result, the [place] [employer] and U.S. Multi-Society Task Force screening guidelines recommend a Cologuard re-screening interval of 3 years. References: [place] [employer] Guideline for Colorectal Cancer Screening: https://www.cancer.org/cancer/ucito-ddwync-zzcurd/juiboayvw-iuwrqschf-wexkxen/ac s-rec ommendations.html.; Rob DK, Cristal MADDOX, Raoul CutlerK, Colorectal Cancer Screening: Recommendations for Physicians and Patients from the U.S. Multi-Society Task Force on Colorectal Cancer Screening , Am J Gastroenterology 2017; 112:2635-3042. TEST DESCRIPTION: Composite algorithmic analysis of stool DNA-biomarkers with hemoglobin immunoassay. ?? Quantitative values of individual biomarkers are not reportable and are not associated with individual biomarker result reference ranges. Cologuard is intended for colorectal cancer screening of adults of either sex, 45 years or older, who are at average-risk for colorectal cancer (CRC). Cologuard has been approved for use by the U.S. FDA. The performance of Cologuard was established in a cross sectional study of average-risk adults aged 50-84. Cologuard performance in patients ages 45 to 49 years was estimated by sub-group analysis of near-age groups. Colonoscopies performed for a positive result may find as the most clinically significant lesion: colorectal cancer [4.0%], advanced adenoma (including sessile serrated polyps greater than or equal to 1cm diameter) [20%] or non- advanced adenoma [31%]; or no colorectal neoplasia [45%]. These estimates are derived from a prospective cross-sectional screening study of 10,000 individuals at average risk for colorectal cancer who were screened with both Cologuard and colonoscopy. (Stephanie Rich al, N Engl J Med 2014;370(14):7141-9430.) Cologuard may produce a false negative or false positive result (no colorectal cancer or precancerous polyp present at colonoscopy follow up). A negative Cologuard test result does not guarantee the absence of CRC or advanced adenoma (pre-cancer). The current Cologuard screening interval is every 3 years. ([place] [employer] and U.S. Multi-Society Task Force). Cologuard performance data in a 10,000 patient pivotal study using colonoscopy as the reference method can be accessed at the following location: [email or web address]/results. Additional description of the Cologuard test process, warnings and precautions can be found at [email or web address]. Stool specimen (specimen) 07/09/2023 9:43 AM EST 07/10/2023 7:47 PM EDT Gege Polk MD LAB MOLECULAR DIAGNOS TICS ORDERABLES Final Result [facility] (CLIA #:[id number]) [address] [place] [address], * HPV E6/E7 RFLX ROMEL 16 18/45 (01/27/2021 2:48 PM EDT) HPV 16 RNA [facility] HPV 18/45 RNA [facility] HPV E6 E7 ADD [facility] HPV mRNA E6/E7 rflx Not Detected Not Detected [facility] Comment: Methodology: Manager Installation-Mediated Amplification This assay detects E6/E7 viral messenger RNA (mRNA) from 14 high-risk HPV types (16,18,31,33,35,39,45,51,52,56,58,59,66,68). The analytical performance characteristics of this assay have been determined by [employer]. The modifications have not been cleared or approved by the FDA. This assay has been validated pursuant to the CLIA regulations and is used for clinical purposes. For additional information, please refer to http://education.[employer]faq/BIG511u8 (This link if provided for information/ educational purposes only.) THIS TEST WAS PERFORMED AT: [employer] [address] [facility] [address] [place], [place] ??[phone] BRUNO NICOLE MD 01/27/2021 2:48 PM EDT Timbo Del Rosario MD HISTORICAL/NON ORDERABLE LABS Fi nal Result [facility] [address] from Last 3 Months or Most Recently Relevant to Health Maintenance Insurance [facility] H[facility] Care Teams Sugar Trucker Relationship Specialty Start Date End Date Gege Magallanes MD [address] [place] [address] PCP - General Internal Medicine 12/07/22
--- OUTSIDE RECORDS SUMMARY | 2024-06-05 13:38 | XMS_ITS | Encounter Summary ---
Author Organization [employer] Address [address] [place] [address] 7 [place] [address] Care Team Providers Care Guard Dance Hall Name Role Phone Kelly Barboza MD Primary Care Provider Jeannette Decker Primary Care Provider [phone] Gege Magallanes MD Primary Care Provide r Encounter Details Date Type Department Care Team (Latest Contact Info) Description 12/06/2018 Abstract [facility] CONVERSIONS Dental, Provider, DDS Social History Tobacco Use Types Packs/Day Years Used Date Smoking Tobacco: Never Assessed Comments Unknown Sex and Gender Information Value Date Recorded Sex Assigned at Female 03/01/2022 10:17 AM EDT Legal Sex Female 10:17 AM EDT Gender Identity Female 03/01/2022 10:17 AM EDT Sexual Orientation Straight 03/01/2022 10 :17 AM EDT documented as of this encounter Plan of Treatment Upcoming Encounters Date Type Department Care Team (Late st Contact Info) Description 07/23/2024 3:30 PM EDT Office Visit [facility] MEDICINE [address] [place], [place] [phone] Gege Magallanes MD [address] [place], [place] [phone] documented as of this encounter Visit Diagnoses Not on filedocumented in this encounter Care Teams Guard Dance Hall Relationship Specialty Start Date End Date Kelly Barboza MD PCP - General Family Medicine 04/05/19 05/31/22 Jeannette Pinto FNP [address] [place] [address] PCP - General Family Medicine 06/01/22 12/06/22 Gege Magallanes MD [address] [place] [address] [place] [address] PCP - General Internal Medicine 12/07/22 documented as of this encounter
== END 2024-06-05 13:49 | disposition home or self-care (01) ==
PROVIDERS: PCP Internal Medicine; Visit Provider Obstetrics & Gynecology
DX: D25.9 Leiomyoma of uterus, unspecified (principal); Z01.419 Encounter for gynecological examination (general) (routine) without abnormal findings
CPT/HCPCS: 99213; 99396; 99459

== ENCOUNTER 2024-10-25 13:47 | Outpatient (REF) | payer BC, SELFPAY ==
--- OUTSIDE RECORDS SUMMARY | 2024-10-25 16:38 | XMS_ITS | Encounter Summary ---
Author Organization [employer] Address [address] [facility] 7t [place] [address] Care Team Providers Care Cardiac Sonographer Name Role Phone Gege Magallanes MD Primary Care Provide r Dae Hyde PharmD Unavailable [phone] Encounter Details Date Type Department Care Team (Latest Contact Info) Description 10/25/2024 Travel Social History Tobacco Use Types Packs/Day Years Used Date Smoking Tobacco: Every Day Cigarettes 0.3 20.5 Started: 2004 Passive Smoke Exposure: Current Smokeless Tobacco: Never Comments:Quit attempt start 08/30/2024 - 05/04 ppd smoker for 20 years Alcohol Use Standard Drinks/Week Comments Never 0 [...] Care Team (Late st Contact Info) Description 11/14/2024 10:00 AM EDT Telemedicine [facility] MEDICINE [address] [place] [address] Dae Hyde, Robbie [address] [place] [address] documented as of this encounter Visit Diagnoses Not on filedocumented in this encounter Additional Health Concerns Assessment Noted Time PHQ-9 Depression Total Score: 0 03/26/20 24 3:20 PM EST documented as of this encounter Care Teams Cardiac Sonographer Relationship Specialty Start Date End Date Gege Magallanes MD [address] [place] [phone] PCP - General Internal Medicine 12/07/22 Dae Hyde, PharmD [address] [place] [address] Pharmacist Internal Medicine 08/31/24 documented as of this encounter
[2024-10-27 20:23] LABS: TS Negative Control Passed; TS Panel A 0; TS Panel B 0; TS Positive Control Passed; TSpotTB Negative (Negative)
== END 2024-10-25 13:48 | disposition home or self-care (01) ==
LOC: HO.HHCL 13:47
PROVIDERS: PCP Internal Medicine; Visit Provider Internal Medicine
DX: Z11.1 Encounter for screening for respiratory tuberculosis (principal)
CPT/HCPCS: 36415; 86481

== ENCOUNTER 2024-12-29 14:01 | Outpatient (REF) | payer BC, SELFPAY ==
--- OUTSIDE RECORDS SUMMARY | 2024-12-27 14:15 | XMS_ITS | Encounter Summary ---
Author Organization [employer] Address [address] [place] [address] Care Team Providers Care Tactical Air Defense Controller Name Role Phone Gege Magallanes MD Primary Care Provide r Reason for Visit * Reason Comments Consult Onycholysis * Consultation (Routine) - Authorized Specialty Diagnoses / Procedures Referred By Contact Referred To Contact Podiatry / Orthopaedic Surgery Diagnoses Onycholysis Gege Magallanes MD [address] [place] [phone] Phone: tel: fax: Isaac Mondragon DPM [address] [place] [address] Phone: tel: fax: Referral ID Status Reason Start Date Expiration Date Visits Requested Visits Authorized [id number] Authorized Specialty Services Required 10/17/2024 10/17/2025 1 1 Encounter Details Date Type Department Care Team ([facility] Contact Info) Description 12/27/2024 2:15 PM EDT Consult Orthopedic Surgery - [place] [address] [phone] Isaac Mondragon DPM [address] [address] Dermatophytosis of nail (Primary Dx); Onycholysis; Tinea pedis of both feet Social History Tobacco Use Types Packs/Day Years Used Date Smoking Tobacco: Never Assessed Comments Unknown Sex and Gender Information Value Date Recorded Sex Assigned at Not on file Legal Sex Female 5:42 PM EDT Gender Identity Not on file Sexual Orientation Not on file documented as of this encounter Ordered Prescriptions Prescription Sig Dispense Quantity Refills Last Filled Start Date End Date fluconazole (Diflucan) 200 mg tablet Take 1 tablet (200 mg total) by mouth 1 (one) time per week. 12 each 12/27/2024 03/27/2025 documented in this encounter Progress Notes * Isaac Mondragon DPM - 12/27/2024 2:15 PM EDT Last PCP visit:Referring MD: Gege Magallanes * IDENTIFIER: Chavo is a 54 y.o. year old male who presents for consultation. CC: Foot pain HPI: Chavo is a 54 y.o. year old presents today for evaluation of her feet she does she has thickened fungal nails and skin both great toes and her right thumb tissue starting Lamisil but could not finish the medication due to intolerance and upset stomach referred for evaluation previously had labs that were negative for liver inflammation from her primary care ROS: GENERAL: Pt denies nausea, fever, vomiting, chills, or shortness of breath. Pt in NAD. CARDIOLOGY: pt denies chest pain, palpitations LUNGS: pt denies shortness of breath MUSCULOSKELETAL: See HPI, otherwise no joint pain or swelling, back pain, or muscle pain. SKIN: see HPI, otherwise no lesions, rash or itching NEURO: No persistent headache, weakness or numbness The remainder of the review of systems is noncontributory PAST MEDICAL HISTORY: There is no problem list on file for this patient. SOCIAL HISTORY: Social History Tobacco Use Smoking status: Not on file Smokeless tobacco: Not on file Substance Use Topics Alcohol use: Not on file ACTIVE MEDICATIONS: No outpatient medications have been marked as taking for the 12/27/24 encounter (Consult) with Isaac Mondragon DPM. ALLERGIES: No Known Allergies PHYSICAL EXAM: There were no vitals taken for this visit. PODIATRIC EXAMINATION: GENERAL: Patient appears well nourished, with NAD. VASCULAR: Dorsalis pedis pulses are 2/4 bilaterally and Posterior tibial pulses are 2/4 bilaterally. Capillary filling time within normal limits the digits. No pallor on elevation or rubor on dependency. No varicosities. Denies rest pain or claudication pain. NEUROLOGICAL: Sharp/dull sensation intact, protective sensation intact 10/10 with Ipswitch touch test bilaterally, vibratory sensation intact to the tibial tuberosity. ORTHOPEDIC: Good muscle strength 5/5 of all flexors and extensors. Dorsi flexion of ankle ,10 degrees, plantar flexion WNL. No muscle atrophy. DERMATOLOGICAL:.Toenail discoloration onycholysis thickening of both great toenails BIOMECHANICS: Ankle ROM WNL, STJ ROM wnl, MTJ ROM wnl, 1st MPJ ROM wnl. IMAGING: IMPRESSION: 1. Dermatophytosis of nail 2. Onycholysis 3. Tinea pedis of both feet PLAN: Pt was seen and examined, history reviewed. Patient had failed intolerable to Lamisil Fluconazole 200 mg once weekly prescribed Continue with topical antifungals Follow-up in 4 to 6 weeks Isaac Mondragon DPM documented in this encounter Plan of Treatment Upcoming Encounters Date Type Department Care Team (Late st Contact Info) Description 02/25/2025 3:30 PM EDT Office Visit Orthopedic Surgery - [place] [address] [phone] Isaac Mondragon DPM [address] [address] documented as of this encounter Visit Diagnoses Diagnosis Dermatophytosis of nail- Primary Onycholysis Other specified disease of nail Tinea pedis of both feet documented in this encounter Orders Outpatient Referral Count Last Ordered Date [facility] st Ordered Date AMB REFERRAL TO PODIATRY 1 12/27/2024 documented in this encounter Care Teams Tactical Air Defense Controller Relationship Specialty Start Date End Date Gege Magallanes MD [address] [place] [phone] PCP - General Internal Medicine 10/17/24 documented as of this encounter
--- OUTSIDE RECORDS SUMMARY | 2024-12-29 11:40 | XMS_ITS | Encounter Summary ---
Author Organization [employer] Address [address] [address] [facility] [address] [facility] [address] [place] [address] Care Team Providers Care Promotions Assistant Sales Marketing Name Role Phone Gege Magallanes MD Primary Care Provide r Dae Hyde PharmD Unavailable [phone] Reason for Visit * Reason Comments Walk-In Left upper abdominal pain Encounter Details Date Type Department Care Team (Late st Contact Info) Description 12/29/2024 11:40 AM EDT Office Visit [facility] [address] [place], [place] [phone] Ritika Singh MD [address] [place], [place] [phone] Left upper quadrant abdominal pain (Primary Dx); [...] recall or sooner prn Allergies[2] Current Medications[3] Occitan Translation: Patient is bilingual and declines translation [...] Care Team (Late st Contact Info) Description 01/16/2025 3:30 PM EDT Telemedicine [facility] [address] [place] [address] Dae Hyde, PharmD [address] [place], [place] [phone] Scheduled Orders Name Type Priority Associated Diagnoses Orde r Schedule CBC auto differential Lab Routine Left upper quadrant abdominal pain Expected: 12/29/2024 (Approximate), Expires: 12/29/2025 Comprehensive Metabolic Panel Lab Routine Left upper quadrant abdominal pain Expected: 12/29/2024 (Approximate), Expires: 12/29/2025 Culture, Urine, Routine Microbiology Routine Left upper quadrant abdominal pain Expected: 12/29/2024 (Approximate), Expires: 12/29/2025 documented as of this encounter Procedures Procedure Name Priority Date/Time Associated Diagnosis Comments POCT URINALYSIS DIPSTICK Routine 12/29/2024 12:08 PM EDT Left upper quadrant abdominal pain documented in this encounter Results * (ABNORMAL) POCT Urinalysis (12/29/2024 12:08 PM [...] Media Lot # [id number] Lot# Expiration Date [id number] Urine 12/29/2024 12:0 8 PM EDT Ritika [...] documented as of this encounter Care Teams Promotions Assistant Sales Marketing Relationship Specialty Start Date End Date Gege Magallanes MD [address] [place] [address] PCP - General Internal Medicine 12/07/22 Dae Hyde, PharmD [address] [place] [address] Pharmacist Internal Medicine 08/31/24 documented as of this encounter
--- OUTSIDE RECORDS SUMMARY | 2024-12-29 14:06 | XMS_ITS | Encounter Summary ---
Author Organization [employer] Address [address] [address] [place] [address] Care Team Providers Care Jackscrew Man Name Role Phone Gege Magallanes MD Primary Care Provide r Dae Hyde PharmD Unavailable [phone] Encounter Details Date Type Department Care Team (Latest Contact Info) Description 12/29/2024 Travel Social History Tobacco Use Types Packs/Day [...] Info) Description 01/16/2025 3:30 PM EDT Telemedicine [facility] [address] [place] [address] Dae Hyde, Robbie [address] [place] [address] documented as of this encounter Visit Diagnoses Not on filedocumented in this encounter Additional Health Concerns Assessment Noted Time PHQ-9 Depression Total Score: 0 03/26/20 24 3:20 PM EST documented as of this encounter Care Teams Jackscrew Man Relationship Specialty Start Date End Date Gege Magallanes MD [address] [place] [phone] PCP - General Internal Medicine 12/07/22 Dae Hyde, PharmD [address] [place] [phone] Pharmacist Internal Medicine 08/31/24 documented as of this encounter
--- OUTSIDE RECORDS SUMMARY | 2024-12-29 14:06 | XMS_ITS | Clinical Summary ---
Author Organization [address] [facility] Address [address] [place] [address] Phone Care Team Providers Care Grey Goods Tester Name Role Phone Gege Magallanes MD Primary Care Provide r Allergies No known active allergies Medications fluconazole (Diflucan) 200 mg tablet Take 1 tablet (200 mg total) by mouth 1 (one) time per week. 12 each 12/27/2024 Active Encounters Date Type Department Care Team Description 12/27/2024 2:15 PM EDT Consult [facility] [place] [id number] [phone] Isaac Mondragon DPM Dermatophytosis of nail (Primary Dx); Onycholysis; Tinea pedis of both feet from Last 3 Months Social History Tobacco Use Types Packs/Day Years Used Date Smoking Tobacco: Never Assessed Comments Unknown Sex and Gender Information Value Date Recorded Sex Assigned at Not on file Legal Sex Female 5:42 PM EDT Gender Identity Not on file Sexual Orientation Not on file Plan of Treatment Upcoming Encounters Date Type Department Care Team ([facility] st Contact Info) Description 02/25/2025 3:30 PM EDT Office Visit [facility] [address] [phone] Isaac Mondragon DPM [address] [address] Health Maintenance Due Date Last Done Comments Breast Cancer Screening 1971 Cervical Cancer Screening: Pap Smear 1992 Hepatitis B Vaccines (3 of 3 - 19+ 3-dose series) 07/20/2018 02/17/2018, 01/20/2018 Zoster Vaccines (1 of 2) 2021 COVID-19 Vaccine (2 - season) 2024 06/16/2023 Depression Screening 05/02/2024 Social Influencers of Health Screening 10/17/2024 Influenza Vaccine (#1) 2024 , 06/16/2023, 01/19/2022, Additional history exists Colorectal Cancer Screening: FIT-DNA (Cologuard) 07/08/2026 07/09/2023 Cholesterol Screening (Lipid Panel) 04/23/2029 04/23/2024 DTaP,Tdap,and Td Vaccines (4 - Td or Tdap) 07/23/2034 07/23/2024, 09/03/2013, 06/14/2008 MMR Vaccines Aged Out 02/17/2018, 06/14/2008 No lo nger eligible based on patient's age to complete this topic HIV Screening Completed 04/23/2024 Hepatitis C Screening Completed 04/23/2024 Pneumococcal Vaccine: 50+ Years Completed 07/23/2024, 06/24/2006 HIB Vaccines Aged Out No longer eligi ble based on patient's age to complete this topic HPV Vaccines Aged Out No longer eligi ble based on patient's age to complete this topic Hepatitis A Vaccines Aged Out No long er eligible based on patient's age to complete this topic IPV Vaccines Aged Out No longer eligi ble based on patient's age to complete this topic Meningococcal ACWY Vaccine Aged Out N o longer eligible based on patient's age to complete this topic Meningococcal B Vaccine Aged Out No l onger eligible based on patient's age to complete this topic RSV Immunization Patients Under 20 months Aged Out No longer eligible based on patient's age to complete this topic Varicella Vaccines Aged Out No longer eligible based on patient's age to complete this topic Insurance [facility] Care Teams Grey Goods Tester Relationship Specialty Start Date End Date Gege Magallanes MD [address] [phone] PCP - General Internal Medicine 10/17/24
--- OUTSIDE RECORDS SUMMARY | 2024-12-29 14:06 | XMS_ITS | Encounter Summary ---
Author Organization [employer] Address [address] [place] [address] [address] [place] [address] Care Team Providers Care Resaw Operator Name Role Phone Kelly Barboza MD Primary Care Provider Jeannette Decker Primary Care Provider [phone] Gege Magallanes MD Primary Care Provide r Dae Hyde PharmD Unavailable [phone] Encounter Details Date Type Department Care Team (Latest Contact Info) Description 12/06/2018 Abstract [facility] CONVERSIONS Dental, Provider, DDS Social History [...] Upcoming Encounters Date Type Department Care Team ( st Contact Info) Description 01/16/2025 3:30 PM EDT Telemedicine [facility] MED[facility] [address] [place], [place] [phone] Dae Hyde, PharmD [address] [place], [place] [phone] documented as of this encounter Visit Diagnoses Not on filedocumented in this encounter Care Teams Resaw Operator Relationship Specialty Start Date End Date Kelly Barboza MD PCP - General Family Medicine 04/05/19 05/31/22 Jeannette Pinto FNP [address] [place] [phone] PCP - General Family Medicine 06/01/22 12/06/22 Gege Magallanes MD [address] [place] [phone] PCP - General Internal Medicine 12/07/22 Dae Hyde, VeenaD [address] [place] [phone] Pharmacist Internal Medicine 08/31/24 documented as of this encounter
--- OUTSIDE RECORDS SUMMARY | 2024-12-29 14:06 | XMS_ITS | Clinical Summary ---
Author Organization [employer] Address [address] [facility] 7[address] [place] [address] Care Team Providers Care Hatchery Attendant Name Role Phone Gege Magallanes MD Primary Care Provide r Dae Hyde PharmD Unavailable [phone] Allergies No known active allergies Medications cetirizine (ZyrTEC) 10 MG tabletIndications :Allergic rhinitis, unspecified seasonality, unspecified trigger Take 1 tablet (10 mg) by mouth in the morning. 30 tablet 2 3 Active nicotine (Nicoderm CQ) 14 MG/24HR patchIndications: Smoker Place 1 patch on the skin 1 (one) time each day at the same time. 21 patch 1 5 Active nicotine polacrilex (RA Mini Nicotine) 2 MG lozengeIndication s:Smoker Dissolve 1 lozenge by mouth every 1-2 hours as needed. 100 lozenge 5 Active terbinafine (LamISIL) 250 MG tabletIndications :Onycholysis of toenail Take 1 tablet (250 mg) by mouth Once per day. 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 Stay off medication for now Can use supportive measures such as heating packs and NSAIDs in the meantime Tuberculosis screening 10/25/2024 Atypical chest pain 10/25/2024 Assessment & Plan (10/25/2024 3:14 PM EDT): I will refer patient to cardiology Onycholysis of toenail 10/13/2024 Assessment & Plan (10/25/2024 3:14 PM EDT): Continue with terbinafine to 250 mg daily to complete the treatment for 3 months Acquired trigger finger 10/13/2024 Smoker 07/23/2024 Assessment & Plan (10/25/2024 3:15 PM EDT): Continue with nicotine patch/lozenge Extensive counseling about smoking cessation done today Assessment & Plan (07/23/2024 5:05 PM EDT): I will refer patient to smoking cessation clinic I will prescribe for patient nicotine lozenge Dizziness 07/23/2024 Assessment & Plan (07/23/2024 5:05 PM EDT): I advised to change positions slowly I advised proper hydration I will prescribe the patient some meclizine if dizziness persist I told her to report back to Uterine fibroid 02/22/2024 Chronic nonintractable headache 02/22/2024 Diminished vision 02/22/2024 Frontal sinusitis 02/22/2024 Other fatigue 02/22/2024 Neck pain 06/16/2023 Assessment & Plan (07/23/2024 5:05 PM EDT): Continue to follow-up with specialist Assessment & Plan (07/13/2023 4:32 PM EDT): [...] area for discomfort, tylenol prn -referred to supervisor dried yeast -may need bx -alarm signs and symptoms [...] current interventions Allergic rhinitis 07/21/2012 Asthma 07/21/2012 Assessment & Plan (10/25/2024 3:14 PM EDT): Patient educated to avoid asthma triggers Albuterol inhaler refilled today Encounters Date Type Department Care Team Description 12/29/2024 11:40 AM EDT Office Visit [facility] [address] [address] Ritika Singh MD Left upper quadrant abdominal pain (Primary Dx); Dietary counseling; Exercise counseling 12/29/2024 Travel 12/25/[address] [address] Gege Magallanes MD Nurse Triage 12/05/2024 10:00 AM EDT Telemedicine [address] [address] Dae Hyde, PharmD Smoker (Primary Dx) 11/14/[address] [address] Dae Hyde, PharmD 11/10/[address] [address] Gege Magallanes MD Mild intermittent asthma without complication 10/25/2024 1:00 PM EDT Office Visit [address] [address] Gege Magallanes MD Smoker; Onycholysis of toenail; Tuberculosis screening; Atypical chest pain; Mild intermittent asthma without complication 10/25/2024 Travel 10/24/[address] [address] Gege Magallanes MD chart prep 10/13/2024 12:20 PM EDT Office Visit [facility] [address] [place] [phone] Gege Magallanes MD Acquired trigger finger (Primary Dx); Onycholysis of toenail 10/13/2024 Travel 10/09/[address] [address] Gege Magallanes MD from Last 3 Months Immunizations Immunization Administration Dates Next Due Hep B, adult 02/17/2018,01/20/2018 Influenza Injectable Quadriv alant Preservative Free IIV4 MDCK 01/19/2022,01/23/2021,02/05/2020,01/18,02/19/2019 Influenza injectable quadriv alent IIV4 with preservative 02/17/2018 Influenza injectable quadriv alent preservative free 06/16/2023,02/23/2017,02/03/2015 Influenza, IIV3, injectable 02/15/2011 Influenza, Injectable, MDCK, preservative free 01/28/2024 Influenza, Split (incl. holly fied surface antigen) 03/05/2013 MMR 02/17/2018,06/14/2008 Pfizer Covid-19 Vaccine 12+ 06/16/2023 Pneumococcal Conjugate PCV 20 07/23/2024 Pneumococcal Polysaccharide PPSV23 06/24/2006 TD (adult), 2 Lf tetanus tox oid, preservative free, adsorbed 06/14/2008 Tdap 07/23/2024,09/03/2013 Social History Tobacco Use Types Packs/Day Years Used Date Smoking Tobacco: Every Day Cigarettes 0.3 20.7 Started: 2004 Passive Smoke Exposure: Current Smokeless Tobacco: Never Tobacco Cessation:Ready to Q uit: Yes; Counseling Given: Yes Comments:Quit attempt start 08/30/2024 - 05/04 ppd [...] (146 lb) 12/29/2024 11:42 AM EDT Height 162.6 cm (5' 4 ) 10/25/2024 1:15 PM EDT Body Mass Index 25.06 10/25/2024 1:15 PM EDT Plan of Treatment Upcoming Encounters Date Type Department Care Team (Late st Contact Info) Description 01/16/2025 3:30 PM EDT Telemedicine [facility] [address] [place] [address] Dae Hyde, PharmD [address] [place] [address] Health Maintenance Due Date Last Done Comments CT Colonography 1971 Colonoscopy 1971 FIT 1971 FOBT 1971 Sigmoidoscopy 1971 Pap Smear 1992 Hepatitis B Vaccines (3 of 3 - 19+ 3-dose series) 07/20/2018 02/17/2018, 01/20/2018 Zoster Vaccines (1 of 2) 2021 COVID-19 Vaccine ( season) 2024 06/16/2023, 03/30/2021, 08/07/2020, Additional history exists Influenza Vaccine (#1) 2024 , 06/16/2023, 01/19/2022, Additional history exists Mammogram 02/03/2025 02/04/2024, 01/01, 01/15/2021 Alcohol/Substance Use Screening 03/26/2025 03/26/2024 Depression Screening 03/26/2025 03/26/2024, 03/26/20 SDOH Screening 07/13/2025 07/13/2024 Disability Screening 10/25/2025 10/25/2024 Tobacco Screening 12/29/2025 12/29/2024 Cervical Cancer Screening 01/27/2026 HPV/Cotest 01/27/2026 01/27/2021, 01/01, 02/23/2017 Colorectal Cancer Screening 07/08/2026 FIT DNA/Cologuard 07/08/2026 07/09/2023 Lipid Panel 04/23/2029 04/23/2024, 11/30, 10/29/2021, Additional history exists DTaP/Tdap/Td Vaccines (3 - Td or Tdap) 07/23/2034 07/23/2024, 09/03/2013, 06/14/2008 RSV Patients and Patients Aged 60 years or older (1 - 1-dose 75+ series) 2046 HIV Screening Completed 04/23/2024, 12/17/2022 Hepatitis C Screening Completed 04/23/2024, 023 Pneumococcal Vaccine: 50+ Years Completed 07/23/2024, 06/24/2006 [...] on patient's age to complete this topic Procedures Procedure Name Priority Date/Time Associated Diagnosis Comments POCT URINALYSIS DIPSTICK Routine 12/29/2024 12:08 PM EDT Left upper quadrant abdominal pain T-SPOT(R).TB Routine 10/25/2024 1:54 PM EDT Tuberculosis screening HEPATITIS C AB W/REFL TO HCV RNA, QN, PCR Routine 04/23/2024 10:25 AM EST Other fatigue HIV 1/2 ANTIGEN/ANTIBODY, FOURTH GENERATION W/RFL Routine 04/23/2024 10:25 AM EST Other fatigue LIPID PANEL, STANDARD Routine 04/23/2024 10:25 AM EST Other fatigue BI MAMMOGRAM SCREENING TOMOSYNTHESIS BILATERAL Routine 02/04/2024 10:15 AM EDT LAB COLOGUARD COLON CANCER SCREEN Routine 07/09/2023 9:43 AM EST Colon cancer screening ZZZ HISTORICAL HPV E6/E7 RFLX ROMEL 16 18/45 Routine 01/27/2021 2:48 PM EDT from Last 3 Months or Most Recently Relevant to Health Maintenance Results * (ABNORMAL) POCT Urinalysis (12/29/2024 12:08 [...] Media Lot # [id number] Lot# Expiration Date 11 Urine 12/29/2024 12:0 8 PM EDT us Ritika Singh MD POINT OF CARE TEST ENTER/EDIT ORDERABLES Final Result * T-SPOT??.TB (10/25/2024 1:54 PM EDT) [facility] T Spot TB Negative Negative [facility] Comment:A negative test resu lt does not exclude the possibilityof exposure to or infection with Mycobacteriumtuberculosis (M. tuberculosis). Patients with recentexposure to TB infected individuals exhibiting anegative T-SPOT.TB result should be considered forretesting within 6 weeks or if other relevant clinicalsymptoms indicate. Results from T-SPOT.TB testing mustbe used in conjunction with each individual'sepidemiological history, current medical status,and results of other diagnostic evaluations.The T-SPOT.TB test is qualitative and results arereported as positive, borderline, or negative, giventhat the test controls perform as expected. In linewith the Centers for Disease Control and Prevention's2010 recommendation to report quantitative measurementsalongside the qualitative result, the laboratoryprovides spot counts for informational purposes only.The T-SPOT.TB test should not be interpreted as aquantitative test. TS PANEL A 0 [facility] TS PANEL B 0 [facility] Negative Control Passed [facility] Positive Control Passed [facility] Comment:For additional infor edwige, please refer tohttp://education.[employer]/faq/GPM264(This link is being provided for informational/educational purposes only.)THIS TEST WAS PERFORMED AT:[employer]/[id number] [place] [address]GHRSKKUMAJO GUO MD,PHD 10/25/2024 1:54 PM EDT 10/25/2024 4:10 PM EDT us Gege Polk MD LAB BLOOD ORDERABLES Final Result Performing Organization Address [facility] Co de Phone Number [facility] [address] [place] [address] [phone] * Hepatitis C Antibody with Reflex to HCV, RNA, Quantitative, Real-Time PCR (04/23/2024 10:25 AM EST) Hepatitis C Antibody Nonreactive Nonreactive [facility] Comment:Antibodies to HCV no t detected; does not exclude early acuteHCV infection. Blood Venous blood specimen / Unknown 04/23/2024 10:25 AM EST 04/23/2024 10:30 AM EST us Gege Polk MD LAB BLOOD ORDERABLES Final Result Performing Organization Address [facility] Co de Phone Number [facility] [address] [place] [phone] * HIV-1/2 Antigen and Antibodies, Fourth Generation, with Reflexes (04/23/2024 10:25 AM EST) HIV AB/AG Nonreactive Nonreactive [facility] Comment:HIV-1 p24 Ag and/or HIV-1/HIV-2 Ab not detected.A test result that is nonreactive does not exclude thepossibility of exposure to or infection with HIV-1 and/orHIV-2. Nonreactive results in this assay for individualswith prior exposure to HIV-1 and/or HIV-2 may be due toantigen and antibody levels that are below the limit ofdetection of this assay.The Rabbit HIV Ag/Ab Combo assay result andsupplemental assay results should be interpreted inconjunction with the patient's clinical presentation,history and other laboratory results. If the results areinconsistent with clinical evidence, additional testing issuggested to confirm the result. Blood Venous blood specimen / Unknown 04/23/2024 10:25 AM EST 04/23/2024 10:30 AM EST us Gege Polk MD LAB BLOOD ORDERABLES Final Result Performing Organization Address City/[facility]/ZIP Co de Phone Number [facility] [address] [place] [address] [phone] * (ABNORMAL) Lipid Panel, Standard (04/23/2024 10:25 AM EST) Triglycerides 126 <150 mg/dL [facility] Comment:Desirable Triglyceri de: less than 150 mg/dLBorderline High Triglyceride 150-199 mg/dLHigh Triglyceride: 200-499 mg/dLVery High Triglyceride: greater than or equal to 5OO mg/dL Cholesterol 206(H) <200 mg/dL [facility] Comment:Desirable Cholestero l: less than 200 mg/dLBorderline High Cholesterol: 200-239 mg/dLHigh Cholesterol: greater than 239 mg/dL LDL Cholesterol Calculated 131(H) <100 mg/dL [facility] Comment:Desirable LDL: less than 100 mg/dLNear Optimal/Above Optimal LDL: 110- 129 mg/dLBorderline High LDL: 130-159 mg/dLHigh LDL: 160-189 mg/dLVery High LDL: greater than or equal to 190 mg/dL HDL Cholesterol 50 >40 mg/dL [facility] Comment:Desirable HDL: great er than 40 mg/dL Note: This HDL assay may give artificially low results in patients with liver disease. Blood Venous blood specimen / Unknown 04/23/2024 10:25 AM EST 04/23/2024 10:30 AM EST Gege Polk MD LAB BLOOD ORDERABLES Final Result Performing Organization Address City/[facility]/ZIP Co de Phone Number [facility] [address] [place] [phone] [phone] * BI Mammogram Screening Tomosynthesis Bilateral (02/04/2024 10:15 AM EDT) Anatomical Region Laterality Modality Breast Bilateral Mammography 02/04/2024 10:1 5 AM EDT Narrative 02/17/2024 9:34 AM EDT [facility] [address] [place] [address] Mammography Report Signed Patient: Kristen Tony I MR#: [id number] 64 : 1970 Acct:[id number] Age/Sex: 53 / F ADM Date: 02/04/24 Loc: HO.MAMMO Attending Dr: Efraín Miller MD Ordering Physician: Name,Efraín ROJAS Results: 1Negative Date of Service: 02/04/24 Follow Up: 1 Year From Orig inal Mammogram Procedure(s): MM tomosynthesis screening BI Accession Number(s): [id number] cc: Gege Magallanes MD; Name,Efraín ROJAS EXAMINATION: [...] 02/17/24 0931 DD/ 1015 TD/TT: 02/04/24 1028 Sales And Marketing Executive: Procedure Note Donotuseinterpreter, Image - 02/17/2024 [facility] [address] [place] [address] Mammography Report Signed Patient: Kristen Tony IMR#: [id number] 64 : 1970Acct:[id number] Age/Sex: 53 / FADM Date: 02/04/24 Loc: HO.MAMMO Attending Dr: Efraín Miller MD Ordering Physician: Name,Efraín MEMBRENOesults: 1Negative Date of Service: 02/04/24Follow Up: 1 Year From Orig ina Mammogram Procedure(s): MM tomosynthesis screening BI Accession Number(s): [id number] cc: Gege Magallanes MD; Name,Efraín ROJAS EXAMINATION: [...] 02/17/24 0931 DD/ 1015 TD/TT: 02/04/24 1028 Sales And Marketing Executive: Efraín Miller MD IMG BI PROCEDURES Final Result * Cologuard?? colon cancer screening (07/09/2023 9:43 AM EST) Cologuard Result Negative Negative 07/16/19 5:34 AM EDT [facility] (CLIA #:[id number]) Comment: NEGATIVE TEST RESULT. A negative Cologuard result indicates a low likelihood that a colorectal cancer (CRC) or advanced adenoma (adenomatous polyps with more advanced pre-malignant features) is present. The chance that a person with a negative Cologuard test has a colorectal cancer is less than 1 in 1500 (negative predictive value >99.9%) or has an advanced adenoma is less than 5.3% (negative predictive value 94.7%). These data are based on a prospective cross-sectional study of 10,000 individuals at average risk for colorectal cancer who were screened with both Cologuard and colonoscopy. (Stephanie Rich al, N Engl J Med 2014;370(14):6449-1539) The normal value (reference range) for this assay is negative. COLOGUARD RE-SCREENING RECOMMENDATION: Periodic colorectal cancer screening is an important part of preventive healthcare for asymptomatic individuals at average risk for colorectal cancer. Following a negative Cologuard result, the English Cancer Society and U.S. Multi-Society Task Force screening guidelines recommend a Cologuard re-screening interval of 3 years. References: English Cancer Society Guideline for Colorectal Cancer Screening: https://www.cancer.org/cancer/dprav-fiznma-tmdnly/okkfnrbkj-dpljlwymi-yqejpqo/ac s-rec ommendations.html.; Rob DK, Cristal CR, Raoul CutlerK, Colorectal Cancer Screening: Recommendations for Physicians and Patients from the U.S. Multi-Society Task Force on Colorectal Cancer Screening , Am J Gastroenterology 2017; 112:3665-1127. TEST DESCRIPTION: Composite algorithmic analysis of stool DNA-biomarkers with hemoglobin immunoassay. Quantitative values of individual biomarkers are not [...] (Stephanie Rich al, N Engl J Med 2014;370(14):6511-3215.) Cologuard may produce a false negative or false positive result (no colorectal cancer or precancerous polyp present at colonoscopy follow up). A negative Cologuard test result does not guarantee the absence of CRC or advanced adenoma (pre-cancer). The current Cologuard screening interval is every 3 years. (English Cancer Society and U.S. Multi-Society Task Force). Cologuard performance data in a 10,000 patient pivotal study using colonoscopy as the reference method can be accessed at the following location: www.[employer]/results. Additional description of the Cologuard test process, warnings and precautions can be found at www.eROIrd.com. Stool specimen (specimen) 07/09/2023 9:43 AM EST 07/10/2023 7:47 PM EDT Gege Polk MD LAB MOLECULAR DIAGNOS TICS ORDERABLES Final Result [facility] (CLIA #:[id number]) [address] [place] [address], * HPV E6/E7 RFLX ROMEL 16 18/45 (01/27/2021 2:48 PM EDT) HPV 16 RNA [facility] HPV 18/45 RNA [facility] HPV E6 E7 ADD [facility] HPV mRNA E6/E7 rflx Not Detected Not Detected [facility] Comment: Methodology: [employer] Coach-Mediated Amplification This assay detects E6/E7 viral messenger RNA (mRNA) from 14 high-risk HPV types (16,18,31,33,35,39,45,51,52,56,58,59,66,68). The analytical performance characteristics of this assay have been determined by [employer]. The modifications have not been cleared or approved by the FDA. This assay has been validated pursuant to the CLIA regulations and is used for clinical purposes. For additional information, please refer to http://education.[employer]/faq/SUT941i6 (This link if provided for information/ educational purposes only.) THIS TEST WAS PERFORMED AT: [facility] [address] [place] [address] [address],[place] [address] BRUNO NICOLE MD 01/27/2021 2:48 PM EDT us Timbo Del Rosario MD HISTORICAL/NON ORDERABLE LABS Fi nal Result Performing Organization Address City/State/[facility] Co de Phone Number [facility] [address] from Last 3 Months or Most Recently Relevant to Health Maintenance Insurance [facility] H[facility] Care Teams Hatchery Attendant Relationship Specialty Start Date End Date Gege Magallanes MD [address] [place] [phone] PCP - General Internal Medicine 12/07/22 Dae Hyde, PharmD [address] [place] [address] [place] [address] Pharmacist Internal Medicine 08/31/24
--- OUTSIDE RECORDS SUMMARY | 2024-12-29 14:06 | XMS_ITS | Encounter Summary ---
Author Organization [employer] Address [address] [facility] 7[address] [place] [address] Care Team Providers Care [employer] Name Role Phone Gege Magallanes MD Primary Care Provide r Dae Hyde PharmD Unavailable [phone] Reason for Visit * Reason Onset Date Comments Nurse Triage 12/25/2024 Encounter Details Date Type Department Care Team ([facility] st Contact Info) Description 12/25/2024 Telephone [facility] [address] [place], [place] [phone] Gege Magallanes MD [address] [place] [address] Nurse Triage Social History Tobacco Use Types Packs/Day Years Used Date Smoking Tobacco: Every Day Cigarettes 0.3 20.7 Started: 2004 Passive Smoke Exposure: Current Smokeless Tobacco: Never Comments:Quit attempt start 08/30/2024 - 1/3 ppd smoker for 20 years Alcohol Use [...] encounter Miscellaneous Notes * Telephone Encounter - Nenita Barth RN - 12/25/2024 4:12 PM EDT called pt to triage, spoke to pt. pt states thinks she is having side effects from the medication Lamisil. pt started this medication a little more than a month ago. pt states intermittent fatigue, stomach pain, and requesting appt with PCP to discuss. pt denies severe pain, vomiting, diarrhea, yellow skin, pallor, fevers, or other associated symptoms. pt wants to know if he could stop the medication and was told could not recommend what she should do, would need to decide this for herself or with PCP. no available appt with PCP at this time andpt has scheduled appt with Podiatry in a few days. advised home care: keep podiatry appt to assess whether she needs to continue this medication andcall back for appt with PCP as needed. pt understands and agrees with plan. insurance verified. Protocol Used: Medication Question Call (Adult) Protocol-Based Disposition: Home Care Positive Triage Question: * Caller has medicine question, adult has minor symptoms, and triager answers question * All higher-acuity triage questions were negative Care Advice Discussed: * Note to Triager - Answer the Question * Medications That Are Safe to Take During * Avoid Alcohol and Smoking * Reasons To Call Back - You have any more questions - You become worse * Telephone Encounter - aRfael Elizondo - 12/25/2024 3:57 PM EDT Pt returning call * Telephone Encounter - Cassiusmo Luevano - 12/25/2024 3:27 PM EDT Symptom: Medication Reaction Outcome: Schedule an urgent appointment (within 1 hour) or talk to a nurse or provider soon Reason: Caller denied all higher acuity questions Please contact pt at [phone]. documented in this encounter Plan of Treatment Upcoming Encounters Date Type Department Care Team (Late st Contact Info) Description 01/16/2025 3:30 PM EDT Telemedicine [facility] [address] [place] [phone] Dae Hyde, PharmD [address] [place] [address] documented as of this encounter Visit Diagnoses Not on filedocumented in this encounter Additional Health Concerns Assessment Noted Time PHQ-9 Depression Total Score: 0 03/26/20 3:20 PM EST documented as of this encounter Care Teams [employer] Relationship Specialty Start Date End Date Gege Magallanes MD [address] [place] [address] PCP - General Internal Medicine 12/07/22 Dae Hyde, PharmD [address] [place] [phone] Pharmacist Internal Medicine 08/31/24 documented as of this encounter
== END 2024-12-29 14:02 | disposition home or self-care (01) ==
LOC: HO.HHCLNP 14:01
PROVIDERS: Visit Provider General Practice
DX: R10.12 Left upper quadrant pain (principal)
CPT/HCPCS: 87086

== ENCOUNTER 2025-01-03 13:31 | Outpatient (REF) | payer BC, SELFPAY ==
--- OUTSIDE RECORDS SUMMARY | 2024-12-29 11:40 | XMS_ITS | Encounter Summary ---
Author Organization [employer] Address [address] [address] 7[address] [place] [address] Care Team Providers Care Hanging Flags Decorator Name Role Phone Gege Magallanes MD Primary Care Provide r Dae Hyde PharmD Unavailable [phone] Reason for Visit * Reason Comments Walk-In Left upper abdominal pain Encounter Details Date Type Department Care Team (Late st Contact Info) Description 12/29/2024 11:40 AM EDT Office Visit [facility] [address] [place], [place] [phone] Ritika Singh MD [address] [place], [place] [phone] Left upper quadrant abdominal pain (Primary Dx); Dietary counseling; Exercise counseling Social History Tobacco Use Types Packs/Day Years Used Date Smoking Tobacco: Every Day Cigarettes 0.3 20.7 Started: 2004 Passive Smoke Exposure: Current Smokeless [...] AM EDT documented as of this encounter Last Filed Vital Signs Vital Sign Reading Time Taken Comments Blood Pressure 126/77 12/29/2024 11:42 AM EDT Pulse 73 12/29/2024 11:42 AM EDT Temperature 36.4 C (97.6 F) 12/29/2024 11:42 AM EDT Respiratory Rate 18 12/29/2024 11:42 AM EDT Oxygen Saturation 97% 12/29/2024 11:42 AM EDT Inhaled Oxygen Concentration - - Weight 66.2 kg (146 lb) 12/29/2024 11:42 AM EDT Height - - Body Mass Index 25.06 10/25/2024 1:15 PM EDT documented in this encounter Progress Notes * Ritika Singh MD - 12/29/2024 11:40 AM EDT Images from the original note were not included. SUBJECTIVE: Kristen Tony is a 54 y.o. female who presents for acute visit. Denies recent illness, ER visit, or hospitalization. Acute Concerns: Left upper abdominal pain / left flank pain - Onset 3 days prior to encounter (December 26, 2024) - Described as severe enough to wake from sleep - Location: left upper quadrant and left flank - Patient perceives pain as deeper inside the abdomen, but also considers possible musculoskeletal origin - Pain persists despite discontinuation of terbinafine Muscle weakness and arm pain - Experienced muscle weakness and pain in arms while taking terbinafine for toenail fungal infection - Terbinafine discontinued 3 days prior to encounter (December 26, 2024) - Muscle weakness and arm pain improved after stopping terbinafine - Patient believes terbinafine was the cause of these side effects Urinary and bowel symptoms - Denies pain with urination - Denies gross hematuria, urgency, or frequency - Reports bowel movements once or twice daily Misc - Was taking terbinafine for fungal infections in toenails prior to onset of current symptoms Patient Active Problem List Diagnosis Date Noted Left upper quadrant abdominal pain 12/29/2024 Tuberculosis screening 10/25/2024 Atypical chest pain 10/25/2024 Onycholysis of toenail 10/13/2024 Acquired trigger finger 10/13/2024 Smoker 07/23/2024 Dizziness 07/23/2024 Uterine fibroid 02/22/2024 Chronic nonintractable headache 02/22/2024 Diminished vision 02/22/2024 Frontal sinusitis 02/22/2024 Other fatigue 02/22/2024 Neck pain 06/16/2023 Colon cancer screening 06/16/2023 Skin lesion 02/11/2023 Health care maintenance 12/17/2022 Arthritis 02/12/2015 Gastroesophageal reflux disease without esophagitis 02/12/2015 Tobacco dependence syndrome 02/12/2015 Urinary incontinence, mixed 03/05/2013 Migraine 11/28/2012 Allergic rhinitis 07/21/2012 Asthma 07/21/2012 Surgical History[1] Social History Social History Narrative Not on file Review of Systems Constitutional: Negative. HENT: Negative. Respiratory: Negative. Cardiovascular: Negative. Gastrointestinal: Positive for abdominal pain. Negative for abdominal distention, anal bleeding, blood in stool, constipation, diarrhea, nausea, rectal pain and vomiting. Genitourinary: Negative for decreased urine volume, difficulty urinating, dyspareunia, dysuria, enuresis, flank pain, frequency, hematuria, pelvic pain, urgency and vaginal discharge. Musculoskeletal: Positive for myalgias. Negative for arthralgias, back pain, joint swelling, neck pain and neck stiffness. Skin: Negative. OBJECTIVE: Vitals: 12/29/24 1142 BP: 126/77 BP Location: Right arm Patient Position: Sitting BP Cuff Size: Adult Pulse: 73 Resp: 18 Temp: 97.6 ??F (36.4 ??C) TempSrc: Oral SpO2: 97% Weight: 146 lb (66.2 kg) Physical Exam Vitals and nursing note reviewed. Constitutional: Appearance: Normal appearance. HENT: Head: Normocephalic and atraumatic. Cardiovascular: Rate and Rhythm: Normal rate and regular rhythm. Pulses: Normal pulses. Heart sounds: Normal heart sounds. Pulmonary: Effort: Pulmonary effort is normal. Breath sounds: Normal breath sounds. Abdominal: General: Abdomen is flat. Bowel sounds are normal. There is no distension. Palpations: Abdomen is soft. There is no mass. Tenderness: There is abdominal tenderness. There is no right CVA tenderness, left CVA tenderness, guarding or rebound. Hernia: No hernia is present. Comments: TTP in the left upper quadrant, light and deep Musculoskeletal: General: Normal range of motion. Skin: General: Skin is warm and dry. Neurological: General: No focal deficit present. Mental Status: She is alert and oriented to person, place, and time. Psychiatric: Mood and Affect: Mood normal. Behavior: Behavior normal. 12/29/24 1212 POCT Urinalysis Collected: 12/29/24 1208 Final result Specimen: Urine Color, UA Yellow Protein, UA Negative Clarity, UA Clear Urobilinogen, UA 0.2 Glucose, UA Negative Leukocytes, UA Negative Bilirubin, UA Negative Nitrite, UA Negative Ketones, UA Negative Appearance, UA yellow clear Spec Grav, UA 1.025 QC Media Lot # [id number] Blood, UA Positive Abnormal Lot# Expiration Date 63,026 pH, UA 6.5 ASSESSMENT/PLAN Problem List Items Addressed This Visit Left upper quadrant abdominal pain - Primary Current Assessment & Plan Unclear etiology of pain in LUQ UA with trace blood, similar to urine 11 months ago Will send UA for culture and obtain labs from the hospital (CBC and CMP) There 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 Stay off medication for now Can use supportive measures such as heating packs and NSAIDs in the meantime Relevant Orders CBC auto differential Comprehensive Metabolic Panel POCT Urinalysis (Completed) Culture, Urine, Routine Other Visit Diagnoses Dietary counseling Exercise counseling Follow Up: per PCP recall or sooner prn Allergies[2] Current Medications[3] Finnish Translation: Patient is bilingual and declines translation services [1] History reviewed. No pertinent surgical history. [2] No Known Allergies [3] Current Outpatient Medications: albuterol 108 (90 Base) MCG/ACT inhaler, INHALE 2 PUFFS BY MOUTH EVERY 4 HOURS NEEDED FOR WHEEZING, Disp: 18 g, Rfl: 0 cetirizine (ZyrTEC) 10 MG tablet, Take 1 tablet (10 mg) by mouth in the morning., Disp: 30 tablet, Rfl: 2 nicotine (Nicoderm CQ) 14 MG/24HR patch, Place 1 patch on the skin 1 (one) time each day at the same time., Disp: 21 patch, Rfl: 1 nicotine polacrilex (RA Mini Nicotine) 2 MG lozenge, Dissolve 1 lozenge by mouth every 1-2 hours asneeded., Disp: 100 lozenge, Rfl: 0 terbinafine (LamISIL) 250 MG tablet, Take 1 tablet (250 mg) by mouth Once per day., Disp: 90 tablet, Rfl: 0 documented in this encounter Miscellaneous Notes * Assessment & Plan Note - Ritika Singh MD - 12/29/2024 12:39 PM EDT Associated Problem(s): Left upper quadrant abdominal pain Unclear etiology of pain in LUQ UA with trace blood, similar to urine 11 months ago Will send UA for culture and obtain labs from the hospital (CBC and CMP) There 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 Stay off medication for now Can use supportive measures such as heating packs and NSAIDs in the meantime documented in this encounter Plan of Treatment Upcoming Encounters Date Type Department Care Team (Late st Contact Info) Description 01/09/2025 11:15 AM EDT Office Visit [facility] MEDICINE [address] [place] [phone] Gege Magallanes MD [address] [place], [place] [phone] 01/16/2025 3:30 PM EDT Telemedicine [facility] MED[facility]INE [address] [place], [place] [phone] Dae Hyde, PharmD [address] [place], [place] [phone] Scheduled Orders Name Type Priority Associated Diagnoses Orde r Schedule Culture, Urine, Routine Microbiology Routine Left upper quadrant abdominal pain Expected: 12/29/2024 (Approximate), Expires: 12/29/2025 documented as of this encounter Procedures Procedure Name Priority Date/Time Associated Diagnosis Comments CBC WITH AUTO DIFFERENTIAL Routine 01/03/2025 1:39 PM EDT Left upper quadrant abdominal pain COMPREHENSIVE METABOLIC PANEL Routine 01/03/2025 1:39 PM EDT Left upper quadrant abdominal pain POCT URINALYSIS DIPSTICK Routine 12/29/2024 12:08 PM EDT Left upper quadrant abdominal pain documented in this encounter Results * Comprehensive Metabolic Panel (01/03/2025 1:39 PM EDT) Sodium 142 135 - 145 mmol/L [facility] Potassium 4.2 3.3 - 5.1 mmol/L [facility] Chloride 107 96 - 108 mmol/L [facility] Carbon Dioxide 27 22 - 29 mmol/L [facility] Anion Gap 12 12 - 20 [facility] Urea Nitrogen (BUN) 12 9 - 16 mg/dL [facility] Creatinine, Serum 0.80 0.5 - 1.4 mg/dL [facility] Estimated Glomerular Filt Rate >60 [facility] Comment:Chronic Kidney Disea se: Estimated GFR < 60 mL/min/[id number] Kidney Disease: Estimated GFR < 15 mL/min/1.73m2 Glucose 80 60 - 115 mg/dL [facility] Calcium 10.0 8.4 - 10.2 mg/dL [facility] Bilirubin, Total 0.2 0.0 - 1.0 mg/dL [facility] Aspartate Amino Transferase 24 5 - 31 U/L [facility] Alanine Aminotransferase 23 0 - 31 U/L [facility] Total Protein 7.3 6.5 - 8.0 g/dL [facility] Albumin Level 4.8 3.5 - 5.0 g/dL [facility] Alkaline Phosphatase 89 39 - 117 U/L [facility] Blood Venous blood specimen / Unknown 01/03/2025 1:39 PM EDT 01/03/2025 1:39 PM EDT us Ritika Singh MD LAB BLOOD ORDERABLES Final Res ult [facility] [address] [place] [phone] * CBC auto differential (01/03/2025 1:39 PM EDT) White Blood Count 8.3 4.8 - 10.8 X10*3/uL [facility] Red Blood Count 4.59 4.20 - 5.50 X10*6/uL [facility] Hemoglobin 13.1 12.0 - 16.0 g/dl [facility] Hematocrit 38.5 37.0 - 47.0 % [facility] Mean Corpuscular Volume 83.9 80.0 - 98.0 fL [facility] Mean Corpuscular Hemoglobin 28.5 27.0 - 33.0 pg [facility] Mean Corpuscular HGB Conc 34.0 31.0 - 35.0 g/dl [facility] Red Cell Distribution Width 13.1 11.0 - 16.0 % [facility] Platelet Count 217 160 - 400 X10*3/uL [facility] Mean Platelet Volume 10.2 9.4 - 12.3 fL [facility] Neutrophils Percent Auto 62.3 45 - 73 % [facility] Imm Gran Pct Auto 0.2 0.0 - 0.4 % [facility] Lymphocytes Percent Auto 28.3 20 - 40 % [facility] Monocytes Percent Auto 7.0 2 - 11 % [facility] Eosinophils Percent Auto 1.7 0 - 4 % [facility] Basophils Percent Auto 0.5 0 - 2 % [facility] NRBC Pct Auto 0.0 0.0 - 0.2 /100WBC [facility] Neutrophils Absolute Auto 5.2 2.0 - 8.3 x10*3/uL [facility] Imm Gran Abs Auto 0.02 0.00 - 0.03 X10*3/uL [facility] Lymphocytes Absolute Auto 2.4 1.2 - 4.9 X10*3/uL [facility] Monocytes Absolute Auto 0.6 0.1 - 1.2 X10*3/uL [facility] Eosinophils Absolute Auto 0.1 0.0 - 0.4 X10*3/uL [facility] Basophils Absolute Auto 0.0 0.0 - 0.2 X10*3/uL [facility] NRBC Abs Auto 0.000 0.0 - 0.012 X10*3/uL [facility] Blood Venous blood specimen / Unknown 01/03/2025 1:39 PM EDT 01/03/2025 1:39 PM EDT us Ritika Singh MD LAB BLOOD ORDERABLES Final Res ult [facility] [address] [place] [phone] * (ABNORMAL) POCT Urinalysis (12/29/2024 12:08 PM EDT) Color, UA Yellow Clarity, UA Clear Glucose, UA Negative Bilirubin, UA Negative Ketones, UA Negative Spec Grav, UA 1.025 Blood, UA Positive(A) Negative, None Detected Comment:trace- intact pH, UA 6.5 Protein, UA Negative Urobilinogen, UA 0.2 Leukocytes, UA Negative Negative, Rare, Trace Nitrite, UA Negative Negative, None Detected Appearance, UA yellow clear QC Media Lot # [id number] Lot# Expiration Date Urine 12/29/2024 12:0 8 PM EDT Ritika Singh MD POINT OF CARE TEST ENTER/EDIT ORDERABLES Final Result documented in this encounter Visit Diagnoses Diagnosis Left upper quadrant abdominal pain- Primary Dietary counseling Dietary surveillance and counseling Exercise counseling documented in this encounter Additional Health Concerns Assessment Noted Time PHQ-9 Depression Total Score: 0 03/26/20 24 3:20 PM EST documented as of this encounter Care Teams Hanging Flags Decorator Relationship Specialty Start Date End Date Gege Magallanes MD [address] [place] [address] PCP - General Internal Medicine 12/07/22 Dae Hyde, VeenaD [address] [place] [phone] Pharmacist Internal Medicine 08/31/24 documented as of this encounter
[2025-01-03 13:41] LABS: MANUAL DIFF FLAG NO
[2025-01-03 13:54] LABS: Hematocrit 38.5 % (37.0-47.0); Hemoglobin 13.1 g/dl (12.0-16.0); Imm Gran Abs Auto 0.02 X10*3/uL (0.00-0.03); Imm Gran Pct Auto 0.2 % (0.0-0.4); Lymphocytes Absolute Auto 2.4 X10*3/uL (1.2-4.9); Mean Corpuscular HGB Conc 34.0 g/dl (31.0-35.0); Mean Corpuscular Hemoglobin 28.5 pg (27.0-33.0); Mean Corpuscular Volume 83.9 fL (80.0-98.0); NRBC Abs Auto 0.000 X10*3/uL (0.0-0.012); NRBC Pct Auto 0.0 /100WBC (0.0-0.2); Platelet Count 217 X10*3/uL (160-400); Red Blood Count 4.59 X10*6/uL (4.20-5.50); White Blood Count 8.3 X10*3/uL (4.8-10.8)
[2025-01-03 14:19] LABS: Alanine Aminotransferase 23 U/L (0-31); Albumin Level 4.8 g/dL (3.5-5.0); Alkaline Phosphatase 89 U/L (39-117); Anion Gap 12 (12-20); Aspartate Amino Transferase 24 U/L (5-31); Blood Urea Nitrogen 12 mg/dL (9-16); Calcium 10.0 mg/dL (8.4-10.2); Carbon Dioxide 27 mmol/L (22-29); Chloride 107 mmol/L (96-108); Estimated Glomerular Filt Rate > 60; Potassium 4.2 mmol/L (3.3-5.1); Sodium 142 mmol/L (135-145); Total Protein 7.3 g/dL (6.5-8.0)
--- OUTSIDE RECORDS SUMMARY | 2025-01-03 14:49 | XMS_ITS | Clinical Summary ---
Author Organization [employer] Address [address] [facility] 7t [place] [address] Care Team Providers Care Machine Setup Operator Name Role Phone Gege Magallanes MD Primary Care Provide r Dae Hyde PharmD Unavailable [phone] Allergies No known active allergies Medications cetirizine [...] area for discomfort, tylenol prn -referred to regulatory compliance officer -may need bx -alarm signs and symptoms [...] Encounters Date Type Department Care Team Description 01/02/2025 Results Follow-Up [facility] [address] [address] Mishel Sanchez MD Culture, Urine, Routine 01/01/[address] [address] Tara Og, UZAIR Appointment Request 12/29/2024 11:40 AM EDT Office Visit [address] [address] Ritika Singh MD Left upper quadrant abdominal pain (Primary Dx); Dietary counseling; Exercise counseling 12/29/2024 Travel 12/25/[address] [address] Gege Magallanes MD Nurse Triage 12/05/2024 10:00 AM EDT Telemedicine [address] [address] Dae Hyde, PharmD Smoker (Primary Dx) 11/14/[address] [address] Dae Hyde, PharmD 11/10/[address] [address] Gege Magallanes MD Mild intermittent asthma without complication 10/25/2024 1:00 PM EDT Office Visit [address] [address] Gege Magallanes MD Smoker; Onycholysis of toenail; Tuberculosis screening; Atypical chest pain; Mild intermittent asthma without complication 10/25/2024 Travel 10/24/[address] [address] Gege Magallanes MD chart prep 10/13/2024 12:20 PM EDT [facility] [address] [address] Gege Magallanes MD Acquired trigger finger (Primary Dx); Onycholysis of toenail 10/13/2024 Travel 10/09/2024 Telephone [facility] [address] [place] [address] Gege Magallanes MD from Last 3 Months [...] Given: Yes Comments:Quit attempt start 08/30/2024 - /3 ppd smoker for 20 years Alcohol Use Standard Drinks/Week Comments Never 0 (1 standard drink = 0.6 oz pur e alcohol) Depression Answer Date Recorded Patient Health Questionnaire-9 Score 0 03/26/2024 Patient Health Questionnaire-9 Score 0 03/26/2024 Last PHQ-9: Questionnaire Data Not on file 1 05/26/2023 Housing Stability Answer Date Recorded What is your housing situation today? I have toriemelanie raphael 02/15/[address] you [...] Description 01/09/2025 11:15 AM EDT Office Visit [facility] [address] [place], [place] [phone] Gege Magallanes MD [address] [place], [place] [phone] 01/16/2025 3:30 PM EDT Telemedicine [facility] [address] [place], [place] [phone] Dae Hyde, PharmD [address] [place] [address] Health Maintenance Due Date Last Done Comments CT Colonography 1971 Colonoscopy 1971 FIT 1971 Sigmoidoscopy 1971 Pap Smear 1992 Hepatitis B Vaccines (3 of 3 - 19+ 3-dose series) 07/20/2018 02/17/2018, 01/20/2018 Zoster Vaccines (1 of 2) 2021 FOBT 07/08/2024 07/09/2023 COVID-19 Vaccine ( season) 2024 06/16/2023, 03/30/2021, 08/07/2020, Additional history exists Influenza Vaccine (#1) 2024 , 06/16/2023, 01/19/2022, Additional history exists Mammogram 02/03/2025 02/04/2024, 01/01, 01/15/2021 Alcohol/Substance Use Screening 03/26/2025 03/26/2024 Depression Screening 03/26/2025 03/26/2024, 03/26/20 24 SDOH Screening 07/13/2025 07/13/2024 Disability Screening 10/25/2025 [...] Procedure Name Priority Date/Time Associated Diagnosis Comments COMPREHENSIVE METABOLIC PANEL Routine 01/03/2025 1:39 PM EDT Left upper quadrant abdominal pain CBC WITH AUTO DIFFERENTIAL Routine 01/03/2025 1:39 PM EDT Left upper quadrant abdominal pain CULTURE, URINE, ROUTINE Routine 12/29/2024 12:19 PM EDT POCT URINALYSIS DIPSTICK Routine 12/29/2024 12:08 PM [...] Recently Relevant to Health Maintenance Results * CBC auto differential (01/03/2025 1:39 PM EDT) White Blood Count 8.3 4.8 - 10.8 X10*3/uL [facility] Red Blood Count 4.59 4.20 - 5.50 X10*6/uL [facility] Hemoglobin 13.1 12.0 - 16.0 g/dl [facility] Hematocrit 38.5 37.0 - 47.0 % [facility] Mean Corpuscular Volume 83.9 80.0 - 98.0 fL [facility] Mean Corpuscular Hemoglobin 28.5 27.0 - 33.0 pg [facility] Mean Corpuscular HGB Conc 34.0 31.0 - 35.0 g/dl [facility] Red Cell Distribution Width 13.1 11.0 - 16.0 % [facility] Platelet Count 217 160 - 400 X10*3/uL [facility] Mean Platelet Volume 10.2 9.4 - 12.3 fL [facility] Neutrophils Percent Auto 62.3 45 - 73 % [facility] Imm Gran Pct Auto 0.2 0.0 - 0.4 % [facility] Lymphocytes Percent Auto 28.3 20 - 40 % [facility] Monocytes Percent Auto 7.0 2 - 11 % [facility] Eosinophils Percent Auto 1.7 0 - 4 % [facility] Basophils Percent Auto 0.5 0 - 2 % [facility] NRBC Pct Auto 0.0 0.0 - 0.2 /100WBC [facility] Neutrophils Absolute Auto 5.2 2.0 - 8.3 x10*3/uL [facility] Imm Gran Abs Auto 0.02 0.00 - 0.03 X10*3/uL [facility] Lymphocytes Absolute Auto 2.4 1.2 - 4.9 X10*3/uL [facility] Monocytes Absolute Auto 0.6 0.1 - 1.2 X10*3/uL [facility] Eosinophils Absolute Auto 0.1 0.0 - 0.4 X10*3/uL [facility] Basophils Absolute Auto 0.0 0.0 - 0.2 X10*3/uL [facility] NRBC Abs Auto 0.000 0.0 - 0.012 X10*3/uL [facility] Blood Venous blood specimen / Unknown 01/03/2025 1:39 PM EDT 01/03/2025 1:39 PM EDT us Ritika Singh MD LAB BLOOD ORDERABLES Final Res ult [facility] [address] [place] [phone] * Comprehensive Metabolic Panel (01/03/2025 1:39 PM EDT) Sodium 142 135 - 145 mmol/L [facility] Potassium 4.2 3.3 - 5.1 mmol/L [facility] Chloride 107 96 - 108 mmol/L [facility] Carbon Dioxide 27 22 - 29 mmol/L [facility] Anion Gap 12 12 - 20 [facility] Urea Nitrogen (BUN) 12 9 - 16 mg/dL [facility] Creatinine, Serum 0.80 0.5 - 1.4 mg/dL [facility] Estimated Glomerular Filt Rate >60 [facility] Comment:Chronic Kidney Disea se: Estimated GFR < 60 mL/min/1.09h3Giermi Kidney Disease: Estimated GFR < 15 mL/min/1.73m2 Glucose 80 60 - 115 mg/dL [facility] Calcium 10.0 8.4 - 10.2 mg/dL [facility] Bilirubin, Total 0.2 0.0 - 1.0 mg/dL [facility] Aspartate Amino Transferase 24 5 - 31 U/L [facility] Alanine Aminotransferase 23 0 - 31 U/L [facility] Total Protein 7.3 6.5 - 8.0 g/dL [facility] Albumin Level 4.8 3.5 - 5.0 g/dL [facility] Alkaline Phosphatase 89 39 - 117 U/L [facility] Blood Venous blood specimen / Unknown 01/03/2025 1:39 PM EDT 01/03/2025 1:39 PM EDT Ritika Singh MD LAB BLOOD ORDERABLES Final Res ult Performing Organization Address [facility] Co de Phone Number [facility] [address] [place] [phone] * Culture, Urine, Routine (12/29/2024 12:19 PM EDT) Urine Urine specimen obtained by clean catch procedure / Unknown 12/29/2024 12:19 PM EDT 12/29/2024 2:03 PM EDT Comment:UACC Narrative [facility] - 01/02/2025 12:10 PM EDT Corynebacterium species Quant > 100,000 cfu/mL Susc N/A Susceptibility not routinely performed on this isolate. Specimen Source: Urine clean catch Ritika Singh MD LAB MICROBIOLOGY - GENERAL ORD ERABLES Final Result Performing Organization Address [facility] Co de Phone Number [facility] [address] [place] [phone] * (ABNORMAL) POCT Urinalysis (12/29/2024 12:08 [...] Result * T-SPOT??.TB (10/25/2024 1:54 PM EDT) Pathologist [facility] T Spot TB Negative Negative [facility] Comment:A negative test resu lt [...] as aquantitative test. TS PANEL A 0 [facility] TS PANEL B 0 [facility] Negative Control Passed [facility] Positive Control Passed [facility] Comment:For additional infor edwige, please refer tohttp://education.Cloudkick/faq/UEI225(This link is being provided for informational/educational purposes only.)THIS TEST WAS PERFORMED AT:[employer] [id number] [place] [address]XBLZSEHMAJO GUO MD,PHD 10/25/2024 1:54 PM EDT 10/25/2024 4:10 PM EDT Gege Polk MD LAB BLOOD ORDERABLES Final Result Performing Organization Address [facility]/ZIP Co de Phone Number [facility] [address] [place] [phone] * Hepatitis C Antibody with Reflex to HCV, RNA, Quantitative, Real-Time PCR (04/23/2024 10:25 AM EST) Hepatitis C Antibody Nonreactive Nonreactive [facility] Comment:Antibodies to HCV no t detected; does not exclude early acuteHCV infection. Blood Venous blood specimen / Unknown 04/23/2024 10:25 AM EST 04/23/2024 10:30 AM EST Gege Polk MD LAB BLOOD ORDERABLES Final Result Performing Organization Address [facility] Co de Phone Number [facility] [address] [place] [phone] * HIV-1/2 Antigen and Antibodies, Fourth Generation, with Reflexes (04/23/2024 10:25 AM EST) HIV AB/AG Nonreactive Nonreactive [facility] Comment:HIV-1 p24 Ag and/or HIV-1/HIV-2 Ab not detected.A test result that is nonreactive does not exclude thepossibility of exposure to or infection with HIV-1 and/orHIV-2. Nonreactive results in this assay for individualswith prior exposure to HIV-1 and/or HIV-2 may be due toantigen and antibody levels that are below the limit ofdetection of this assay.The [employer] HIV Ag/Ab Combo assay result andsupplemental assay results should be interpreted inconjunction with the patient's clinical presentation,history and other laboratory results. If the results areinconsistent with clinical evidence, additional testing issuggested to confirm the result. Blood Venous blood specimen / Unknown 04/23/2024 10:25 AM EST 04/23/2024 10:30 AM EST us Gege Polk MD LAB BLOOD ORDERABLES Final Result Performing Organization Address [facility] Co de Phone Number [facility] [address] [place] [phone] * (ABNORMAL) Lipid Panel, Standard (04/23/2024 10:25 AM EST) Triglycerides 126 <150 mg/dL [facility] Comment:Desirable Triglyceri de: less than 150 mg/dLBorderline High Triglyceride 150-199 mg/dLHigh Triglyceride: 200-499 mg/dLVery High Triglyceride: greater than or equal to 5OO mg/dL Cholesterol 206(H) <200 mg/dL [facility] Comment:Desirable Cholestero l: less than 200 mg/dLBorderline High Cholesterol: 200-239 mg/dLHigh Cholesterol: greater than 239 mg/dL LDL Cholesterol Calculated 131(H) <100 mg/dL [facility] Comment:Desirable LDL: less than 100 mg/dLNear Optimal/Above Optimal LDL: 110- 129 mg/dLBorderline High LDL: 130-159 mg/dLHigh LDL: 160-189 mg/dLVery High LDL: greater than or equal to 190 mg/dL HDL Cholesterol 50 >40 mg/dL [facility] Comment:Desirable HDL: great er than 40 mg/dL Note: This HDL assay may give artificially low results in patients with liver disease. Blood Venous blood specimen / Unknown 04/23/2024 10:25 AM EST 04/23/2024 10:30 AM EST Gege Polk MD LAB BLOOD ORDERABLES Final Result Performing Organization Address City/[facility]/ZIP Co de Phone Number [facility] [address] [place] [address] [phone] * BI Mammogram Screening Tomosynthesis Bilateral (02/04/2024 10:15 AM EDT) Anatomical Region Laterality Modality Breast Bilateral Mammography 02/04/2024 10:1 5 AM EDT Narrative 02/17/2024 9:34 AM EDT [facility] [address] [place], [place] [address] Mammography Report Signed Patient: Kristen Tony I MR#: [id number] 63 : 1970 Acct:[id number] Age/Sex: 53 / F ADM Date: 02/04/24 Loc: HO.MAMMO Attending Dr: Efraín Miller MD Ordering Physician: Name,Efraín ROJAS Results: 1Negative Date of Service: 02/04/24 Follow Up: 1 Year From Orig inal Mammogram Procedure(s): MM tomosynthesis screening BI Accession Number(s): [id number] cc: Gege Magallanes MD; Name,Efraín ROJAS EXAMINATION: [...] 02/17/24 0931 DD/ 1015 TD/TT: 02/04/24 1028 Computer Systems Technician: Procedure Note Donotuseinterpreter, Image - 02/17/2024 [facility] [address] [place] [address] Dr. [place], [place] [address] Mammography Report Signed Patient: Kristen Tony IMR#: [id number] 64 : 1970Acct:[id number] Age/Sex: 53 / FADM Date: 02/04/24 Loc: HO.MAMMO Attending Dr: Efraín Miller MD Ordering Physician: Name,Efraín MDResults: 1Negative Date of Service: 02/04/24Follow Up: 1 Year From Orig inal Mammogram Procedure(s): MM tomosynthesis screening BI Accession Number(s): [id number] cc: Gege Magallanes MD; Name,Efraín ROJAS EXAMINATION: [...] 02/17/24 0931 DD/ 1015 TD/TT: 02/04/24 1028 Computer Systems Technician: Efraín Miller MD IMG BI PROCEDURES Final Result * Cologuard?? colon cancer screening (07/09/2023 9:43 AM EST) Cologuard Result Negative Negative 07/16/19 24 5:34 AM EDT [facility] (CLIA #:[id number]) Comment: NEGATIVE TEST RESULT. A negative Cologuard [...] screened with both Cologuard and colonoscopy. (Stephanie Monroe et al, N Engl J Med 2014;370(14):2437-5858) The normal value (reference range) for this assay is negative. COLOGUARD RE-SCREENING RECOMMENDATION: Periodic colorectal cancer screening is an important part of preventive healthcare for asymptomatic individuals at average risk for colorectal cancer. Following a negative Cologuard result, the [place] [employer] and U.S. Multi-Society Task Force screening guidelines recommend a Cologuard re-screening interval of 3 years. References: [place] [employer] Guideline for Colorectal Cancer Screening: https://www.cancer.org/cancer/njwwq-oabrmm-pxckwn/kazsjksgi-rhoileccl-xqdyjai/ac s-rec ommendations.html.; Rob DK, Cristal CR, Raoul CutlerK, Colorectal Cancer Screening: Recommendations for Physicians and Patients from the U.S. Multi-Society Task Force on Colorectal Cancer Screening , Am J Gastroenterology 2017; 112:7916-0269. TEST DESCRIPTION: Composite algorithmic analysis of stool [...] (Stephanie Rich al, N Engl J Med 2014;370(14):8373-1055.) Cologuard may produce a false negative or false positive result (no colorectal cancer or precancerous polyp present at colonoscopy follow up). A negative Cologuard test result does not guarantee the absence of CRC or advanced adenoma (pre-cancer). The current Cologuard screening interval is every 3 years. ([place] [employer] Society and U.S. Multi-Society Task Force). Cologuard performance data in a 10,000 patient pivotal study using colonoscopy as the reference method can be accessed at the following location: www.[place]/results. Additional description of the Cologuard test process, warnings and precautions can be found at www.[employer]ilck[employer].com. Stool specimen (specimen) 07/09/2023 9:43 AM EST 07/10/2023 7:47 PM EDT Gege Polk MD LAB MOLECULAR DIAGNOS TICS ORDERABLES Final Result [facility] (CLIA #:[id number]) [address] [place] [address], * HPV E6/E7 RFLX ROMEL 16 18/45 (01/27/2021 2:48 PM EDT) HPV 16 RNA [facility] HPV 18/45 RNA [facility] HPV E6 E7 ADD [facility] HPV mRNA E6/E7 rflx Not Detected Not Detected [facility] Comment: Methodology: [employer] Hand-Mediated Amplification This assay detects E6/E7 viral messenger RNA (mRNA) from 14 high-risk HPV types (16,18,31,33,35,39,45,51,52,56,58,59,66,68). The analytical performance characteristics of this assay have been determined by [employer]. The modifications have not been cleared or approved by the FDA. This assay has been validated pursuant to the CLIA regulations and is used for clinical purposes. For additional information, please refer to http://education.Cloudkick/faq/XRY350u9 (This link if provided for information/ educational purposes only.) THIS TEST WAS PERFORMED AT: [employer] [address] [place] [address] [address]LO[address],[place] [address] BRUNO NICOLE MD 01/27/2021 2:48 PM EDT Timbo Del Rosario MD HISTORICAL/NON ORDERABLE LABS Fi nal Result Performing Organization Address City/State/[facility] Co [place] Phone Number [facility] [address] from Last 3 Months or Most Recently Relevant to Health Maintenance [facility] Care Teams Machine Setup Operator Relationship Specialty Start Date End Date Gege Magallanes MD [address] [place] [address] PCP - General Internal Medicine 12/07/22 Dae Hyde, VeenaD [address] [place] [address] Pharmacist Internal Medicine 08/31/24
--- OUTSIDE RECORDS SUMMARY | 2025-01-03 14:49 | XMS_ITS | Encounter Summary ---
Author Organization [employer] Address [address] [facility] 7t [place] [address] Care Team Providers Care Supervisor [employer] Name Role Phone Gege Magallanes MD Primary Care Provide r Dae Hyde PharmD Unavailable [phone] Reason for Visit * Reason Onset Date Comments Appointment Request 01/01/2025 Encounter Details Date Type Department Care Team ([facility] Contact Info) Description 01/01/2025 Telephone [facility] [address] [place], [place] [phone] Tara Og RN [address] [place], [place] [phone] Appointment Request Social History Tobacco Use Types Packs/Day Years [...] is your housing situation today? I have toire raphael 02/15/[address] you [...] encounter Miscellaneous Notes * Telephone Encounter - Tara Og RN - 01/01/2025 1:50 PM EDT TC returned to pt. Inquiring if any sooner appointments however no availability. Pt. Agrees to keepappt. As scheduled * Telephone Encounter - Yvon Duval - 01/01/2025 1:41 PM EDT Tc from pt requesting a call back regarding prior message Contact pt at [phone] * Telephone Encounter - Tara Og RN - 01/01/2025 10:34 AM EDT TC received from forms dept. Reporting pt. Has brought in [place] paperwork for anxiety and would require appt with provider to complete. Pt. Scheduled for 01/09/25 at 11:15am, forms dept will make pt. Aware documented in this encounter Plan of Treatment Upcoming Encounters Date Type Department Care Team (Late st Contact Info) Description 01/09/2025 11:15 AM EDT Office Visit [facility] [address] [place] [phone] Gege Magallanes MD [address] [place] [phone] 01/16/2025 3:30 PM EDT Telemedicine [facility] [address] [place] [phone] Dae Hyde, PharmD [address] [place] [phone] documented as of this encounter Visit Diagnoses Not on filedocumented in this encounter Additional Health Concerns Assessment Noted Time PHQ-9 Depression Total Score: 0 03/26/20 3:20 PM EST documented as of this encounter Care Teams Supervisor [employer] Relationship Specialty Start Date End Date Gege Magallanes MD [address] [place] [phone] PCP - General Internal Medicine 12/07/22 Dae Hyde, PharmD [address] [place] [address] [phone] Pharmacist Internal Medicine 08/31/24 documented as of this encounter
--- OUTSIDE RECORDS SUMMARY | 2025-01-03 14:49 | XMS_ITS | Encounter Summary ---
Author Organization [employer] Address [address] [facility] 7t [place] [address] Care Team Providers Care Steamfitter Name Role Phone Kelly Barboza MD Primary Care Provider Jeannette Decker Primary Care Provider [phone] Gege Magallanes MD Primary Care Provide r Dae Hyde PharmD Unavailable [phone] Encounter Details Date Type Department Care Team (Latest Contact Info) Description 12/06/2018 Abstract [facility] CONVERSIONS Dental, Provider, DDS Social History Tobacco [...] Description 01/09/2025 11:15 AM EDT Office Visit [facility] [address] [place] [phone] Gege Magallanes MD [address] [place] [phone] 01/16/2025 3:30 PM EDT Telemedicine [facility] MEDICINE [address] [place] [phone] Dae Hyde, PharmD [address] [place] [address] documented as of this encounter Visit Diagnoses Not on filedocumented in this encounter Care Teams Steamfitter Relationship Specialty Start Date End Date Kelly Barboza MD PCP - General Family Medicine 04/05/19 05/31/22 Jeannette Pinto FNP [address] [place] [address] PCP - General Family Medicine 06/01/22 12/06/22 Gege Magallanes MD [address] [place] [address] PCP - General Internal Medicine 12/07/22 Dae Hyde, VeenaD [address] [place] [phone] Pharmacist Internal Medicine 08/31/24 documented as of this encounter
--- OUTSIDE RECORDS SUMMARY | 2025-01-03 14:49 | XMS_ITS | Clinical Summary ---
Author Organization [address] [facility] Address [address] [place] [address] Phone Care Team Providers Care Signs And Displays Salesperson Name Role Phone Gege Magallanes MD Primary Care Provide r Allergies No known active allergies Medications fluconazole (Diflucan) 200 mg tablet Take 1 tablet (200 mg total) by mouth 1 (one) time per week. 12 each 12/27/2024 Active Encounters Date Type Department Care Team Description 12/27/2024 2:15 PM EDT Consult Orthopedic [place] [phone] [phone] Isaac Mondragon DPM Dermatophytosis of nail (Primary [...] Upcoming Encounters Date Type Department Care Team ([facility] st Contact Info) Description 02/25/2025 3:30 PM EDT Office Visit [facility] [address] [phone] Isaac Mondragon DPM [address] [phone] Health Maintenance Due Date Last Done Comments Breast Cancer Screening 1970 Cervical Cancer Screening: Pap Smear 1992 Hepatitis B Vaccines (3 of 3 - 19+ 3-dose series) 07/20/2018 02/17/2018, 01/20/2018 Zoster Vaccines (1 of 2) 2021 Depression Screening 05/02/2024 Social Influencers of Health Screening 10/17/2024 COVID-19 Vaccine (2 - 2024- season) 2024 06/16/2023 Influenza Vaccine (#1) 2024 , 06/16/2023, 01/19/2022, [...] patient's age to complete this topic Insurance [facility] Care Teams Signs And Displays Salesperson Relationship Specialty Start Date End Date Gege Magallanes MD [address] [phone] PCP - General Internal Medicine 10/17/24
--- OUTSIDE RECORDS SUMMARY | 2025-01-03 14:49 | XMS_ITS | Encounter Summary ---
Author Organization [employer] Address [address] [facility] [address] [place] [address] Care Team Providers Care Chucking And Boring Machine Operator Name Role Phone Gege Magallanes MD Primary Care Provide r Dae Hyde PharmD Unavailable [phone] Encounter Details Date Type Department Care Team [...] Description 01/09/2025 11:15 AM EDT Office Visit [facility] [address] [place] [phone] Gege Magallanes MD [address] [place] [phone] 01/16/2025 3:30 PM EDT Telemedicine [facility] [address] [place] [phone] Dae Hyde, PharmCandis [address] [place] [phone] documented as of this encounter Visit Diagnoses Not on filedocumented in this encounter Additional Health Concerns Assessment Noted Time PHQ-9 Depression Total Score: 0 03/26/20 24 3:20 PM EST documented as of this encounter Care Teams Chucking And Boring Machine Operator Relationship Specialty Start Date End Date Gege Magallanes MD [address] [place] [address] [phone] PCP - General Internal Medicine 12/07/22 Dae Hyde, PharmD [address] [place] [address] [phone] Pharmacist Internal Medicine 08/31/24 documented as of this encounter
--- OUTSIDE RECORDS SUMMARY | 2025-01-03 14:49 | XMS_ITS | Encounter Summary ---
Author Organization [employer] Address [address] [facility] [address] [place] [address] Care Team Providers Care Laboratory Apparatus Glass Blower Name Role Phone Gege Magallanes MD Primary Care Provide r Dae Hyde PharmD Unavailable Encounter Details Date Type Department Care Team ([facility] st Contact Info) Description 01/02/2025 Results Follow-Up [facility] [address] [place] [address] [phone] Mishel Sanchez MD [address] [place] [address] Culture, Urine, Routine Social History Tobacco Use Types Packs/Day Years [...] Description 01/09/2025 11:15 AM EDT Office Visit [facility] [address] [place] [phone] Gege Magallanes MD [address] [place] [phone] 01/16/2025 3:30 PM EDT Telemedicine [facility] [address] [place] [phone] Dae Hyde, PharmD [address] [place] [address] [phone] documented as of this encounter Visit Diagnoses Not on filedocumented in this encounter Additional Health Concerns Assessment Noted Time PHQ-9 Depression Total Score: 0 03/26/20 24 3:20 PM EST documented as of this encounter Care Teams Laboratory Apparatus Glass Blower Relationship Specialty Start Date End Date Gege Maglalanes MD [address] [place] [phone] PCP - General Internal Medicine 12/07/22 Dae Hyde, PharmD [address] [place] [phone] Pharmacist Internal Medicine 08/31/24 documented as of this encounter
== END 2025-01-03 13:32 | disposition home or self-care (01) ==
LOC: HO.LAB 13:31
PROVIDERS: PCP Internal Medicine; Visit Provider General Practice
DX: R10.12 Left upper quadrant pain (principal)
CPT/HCPCS: 36415; 80053; 85025

== ENCOUNTER 2025-03-06 12:51 | Outpatient (AMB) | payer BC, SELFPAY ==
[2025-03-06 12:56] VITALS: BP 122/68; PULSE 66; BMI 23.8
--- NOTE | 2025-03-06 12:56 | A.OFFVIS_ITS ---
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 She describes these as cramps and they can happen any time. With resolved with exertion. She also describes other symptoms like pinching in the chest. She has smoker. Not listed to be a diabetic or hypertensive. No known coronary disease or myocardial infarction or cardiomyopathy. 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 Female Reproductive History Menstrual Age of Menarche: 14 Review of Systems Const Denies weakness ENT Denies dizziness Card Reports chest pain, Denies chest pain with activity, Denies syncope, Denies rapid heart rate, Denies pedal edema, Denies edema, Denies leg edema, Denies lightheadedness, Denies palpitations, Denies dyspnea, Denies dyspnea on exertion and Denies orthopnea Resp Denies cough, Denies dyspnea and Denies dyspnea on exertion GI Denies hematochezia and Denies change in stool character Musc Denies abnormal gait, Denies muscle cramps, Denies muscle weakness, Reports numbness, Denies radiating pain into limb and Denies tingling Neuro Denies abnormal gait, Denies dizziness, Denies syncope, Reports numbness, Denies tingling and Denies weakness Endo Denies palpitations Physical Exam Vital Signs: Last Vital Signs Pulse 66 03/06/25 12:56 BP 122/68 03/06/25 12:56 BMI result Body Mass Index 23.8 Const General: comfortable and no acute distress Orientation/consciousness: patient oriented x3 HEENT Other: Unremarkable Head: Yes normal to inspection Neck Neck: Yes normal visual inspection Chest Chest palpation & inspection: normal inspection of the chest Resp Auscultation: clear to auscultation bilaterally Cardio Palpation: normal PMI Heart sounds: S1 normal heart sound present, S2 normal heart sound present, no gallops, no murmurs and no rubs GI Palpation (GI): Soft to palpation Back/Spine/Pelvis Other: unremarkable Skin General skin exam: no rashes or lesions noted Neuro General: patient oriented x3 Extrem General: Yes normal to inspection Psych Mental Status: mental status grossly normal Office Procedures EKG Details: EKG with underlying sinus rhythm at 66/Min; low-voltage QRS complexes; [place] [id number], Complete Assessment & Plan Assessment & Plan (1) Precordial chest pain: Code(s): R07.2 - Precordial pain Category: Medical (2) Smoker: Code(s): F17.200 - Nicotine dependence, unspecified, uncomplicated Category: Social Hx Plan Smoker, atypical symptoms, unremarkable resting EKG apart from low-voltage complexes. We will get a comprehensive workup with echocardiogram and stress test. If any abnormal findings, we will plan accordingly. Otherwise, main recommendation is to stop smoking. Orders: Orders CA stress test Today R07.2 - Precordial pain CA echo transthoracic complete Today R07.2 - Precordial pain Coding Level of Care Code New Pt Level 4 (65703) Complex EM visit Add On G2211 Diagnoses Precordial chest pain R07.2 Smoker F17.200 CPT Codes EKG - CPT: 66902-[id number], Complete ([id number])
== END 2025-03-06 13:19 | disposition home or self-care (01) ==
LOC: HO.HCS 12:51
PROVIDERS: PCP Internal Medicine; Visit Provider Internal Medicine
DX: R07.2 Precordial pain (principal); F17.200 Nicotine dependence, unspecified, uncomplicated
CPT/HCPCS: 93010; 99204

== ENCOUNTER → 2025-03-06 12:51 | Outpatient (BNVA) | payer BC, SELFPAY | PROVIDERS: PCP Internal Medicine; Visit Provider Internal Medicine | DX: R07.2 Precordial pain (principal) | CPT/HCPCS: 93005 ==